=== PATIENT | female | born 1940 | race Caucasian/White ===

== ENCOUNTER → 2016-06-16 | Outpatient (CLI) | payer OTHER ==
[~2016-06-16] MED LIST: CHOL400T; PANT40TA PO
--- NOTE | 2016-06-16 09:46 | DIAGNOSTIC IMAGING REPORT ---
CHEST 2 VIEWS ROUTINE CLINICAL HISTORY: R04.2 [id number] hemoptysis. Dyspnea. COMPARISON STUDY: No previous studies for comparison. FINDINGS: The bones soft tissues and hemidiaphragms are normal. The cardiomediastinal silhouette is normal. The lungs are clear. The pulmonary vasculature is normal. IMPRESSION: Negative chest. Electronically signed by: Neptali Serrato M.D. 06/16/2016 9:45 AM Dictated Date/Time: 06/16/2016 9:44 AM
[2016-06-16 10:56] LABS: BASO % 0.6 %; BASO ABS # 0.03 K/uL (0-0.2); COMPLETE YES; EOS % 2.5 %; HEMATOCRIT 39.9 % (37-47); LYMPH % 28.7 %; LYMPH ABS # 1.49 K/uL (1.2-3.4); MEAN CELL VOLUME 89.7 fL (80-100); MEAN CORPUSCULAR HEMOGLOBIN 30.6 pg (25-34); MEAN CORPUSCULAR HGB CONC 34.1 g/dl (32-36); MEAN PLATELET VOLUME 10.7 fL (7.4-10.4); MONO % 10.8 %; NEUT % 57.4 %; PLATELET COUNT 196 K/uL (130-400); RED BLOOD COUNT 4.45 M/uL (4.2-5.4); WHITE BLOOD COUNT 5.19 K/uL (4.8-10.8)
[2016-06-16 14:34] LABS: BLOOD UREA NITROGEN 19 mg/dl (7-18); CALCIUM 9.3 mg/dl (8.5-10.1); CARBON DIOXIDE 26 mmol/L (21-32); CHLORIDE 103 mmol/L (98-107); GLUCOSE 92 mg/dl (70-99); POTASSIUM 3.8 mmol/L (3.5-5.1); SODIUM 139 mmol/L (136-145)
== END | disposition home or self-care (01) ==
LOC: C.RADBC 09:10
PROVIDERS: ATTEND Internal Medicine Geriatric Medicine
DX: R04.2 Hemoptysis (principal); M19.90 Unspecified osteoarthritis, unspecified site; E04.2 Nontoxic multinodular goiter; E55.9 Vitamin D deficiency, unspecified; D64.9 Anemia, unspecified

== ENCOUNTER → 2016-07-17 | Outpatient (CLI) | payer OTHER ==
--- NOTE | 2016-07-17 16:28 | MAMMOGRAPHY REPORT ---
BILATERAL DIGITAL SCREENING MAMMOGRAM TOMOSYNTHESIS WITH CAD: 07/17/2016 CLINICAL HISTORY: Routine screening. Patient has no complaints. TECHNIQUE: Breast tomosynthesis in addition to standard 2D mammography was performed. Current study was also evaluated with a Computer Aided Detection (CAD) system. COMPARISON: Comparison is made to exams dated: 11/27/2014 mammogram, 02/18/2012 mammogram, 1 mammogram, 11/15/2009 mammogram - [facility], 11/14/2008, and 08/23/2007. BREAST COMPOSITION: The tissue of both breasts is heterogeneously dense, which may obscure small ma sses. FINDINGS: No suspicious masses, calcifications, or areas of architectural distortion are noted in e ither breast. There has been no significant interval change compared to prior exams. There are stab le post surgical changes in the left breast. Bilateral benign-appearing calcifications are not sign ificantly changed. IMPRESSION: ACR BI-RADS CATEGORY 2: BENIGN There is no mammographic evidence of malignancy. A 1 year screening mammogram is recommended. The p atient will receive written notification of the results. Approximately 10% of breast cancers are not detected with mammography. A negative mammographic repor t should not delay biopsy if a clinically suggestive mass is present. Muna Frazier M.D. /:07/17/2016 16:23:11 Bicycle Ii Assembler: Peri Christian RT(R)(M), [facility] letter sent: Normal 1/2 BI-RADS Code: ACR BI-RADS Category 2: Benign
== END ==
LOC: C.MAMM 14:48
PROVIDERS: ATTEND Internal Medicine Geriatric Medicine
DX: Z12.31 Encounter for screening mammogram for malignant neoplasm of breast (principal); M81.0 Age-related osteoporosis without current pathological fracture

== ENCOUNTER → 2016-12-29 | Outpatient (CLI) | payer OTHER | END | disposition home or self-care (01) | LOC: C.PAPS 09:43 | PROVIDERS: ATTEND Obstetrics & Gynecology | DX: Z01.419 Encounter for gynecological examination (general) (routine) without abnormal findings (principal); N81.11 Cystocele, midline ==

== ENCOUNTER → 2017-08-27 | Outpatient (CLI) | payer OTHER ==
--- NOTE | 2017-08-27 14:15 | MAMMOGRAPHY REPORT ---
BILATERAL DIGITAL SCREENING MAMMOGRAM TOMOSYNTHESIS WITH CAD: 08/27/2017 CLINICAL HISTORY: Routine screening. Patient has no complaints. TECHNIQUE: Breast tomosynthesis in addition to standard 2D mammography was performed. Current study was also evaluated with a Computer Aided Detection (CAD) system. COMPARISON: Comparison is made to exams dated: 07/17/2016 mammogram, 11/27/2014 mammogram, 02/18/2012 mammogram, 01/30/2011 mammogram, 11/15/2009 mammogram - [facility], and 11/14/2008. BREAST COMPOSITION: The tissue of both breasts is heterogeneously dense, which may obscure small mas ses. FINDINGS: No suspicious masses, calcifications, or areas of architectural distortion are noted in ei ther breast. There has been no significant interval change compared to prior exams. There are stable postsurgical changes in the left breast. IMPRESSION: ACR BI-RADS CATEGORY 2: BENIGN There is no mammographic evidence of malignancy. A 1 year screening mammogram is recommended. The pa tient will receive written notification of the results. Approximately 10% of breast cancers are not detected with mammography. A negative mammographic report should not delay biopsy if a clinically suggestive mass is present. Muna Frazier M.D. /:08/27/2017 12:35:28 Sports Medicine Coordinator: Peri GARZON)(Mirna), [facility] letter sent: Normal 1/2 BI-RADS Code: ACR BI-RADS Category 2: Benign
== END | disposition home or self-care (01) ==
LOC: C.MAMM 11:30
PROVIDERS: ATTEND Internal Medicine Geriatric Medicine
DX: Z12.31 Encounter for screening mammogram for malignant neoplasm of breast (principal)

== ENCOUNTER 2023-11-23 11:36 | Inpatient (IN) ==
[2023-11-23 12:26] LABS: Basophils # (auto) 0.02 K/uL (0.00-0.20); Basophils % (auto) 0.2 %; Eosinophils % (auto) 1.2 %; Hematocrit (blood only) 43.3 % (37.0-47.0); Hemoglobin 14.5 g/dl (12.0-16.0); Immature Granulocytes # (auto) 0.01 K/uL (0.01-0.20); Immature Granulocytes % (auto) 0.1 %; Lymphocytes # (auto) 1.65 K/uL (1.20-3.40); Lymphocytes % (auto) 20.6 %; Mean Corpuscular Hgb Conc 33.5 g/dL (32.0-36.0); Mean Corpuscular Volume 92.7 fL (80.0-100.0); Mean Platelet Volume 10.6 fL (9.4-12.4); Monocytes # (auto) 0.79 K/uL (0.11-0.59); Monocytes % (auto) 9.9 %; Neutrophils # (auto) 5.45 K/uL (1.40-6.50); Platelet Count 173 K/uL (130-400); RDW Coefficient of Variation 13.2 % (11.5-14.5); RDW Standard Deviation 44.8 fL (36.4-46.3); Red Blood Count 4.67 M/uL (4.20-5.40); White Blood Count 8.02 K/ul (4.8-10.8)
[2023-11-23 12:42] LABS: Albumin Globulin Ratio 1.1 (0.9-2); Albumin Level 4.2 gm/dl (3.4-5.0); BUN Creatinine Ratio 17.7 (10-20); Bilirubin,Total 0.6 mg/dl (0.2-1.0); Calcium 9.3 mg/dl (8.6-10.3); Est GFR (Non-African American) 84.6 ml/min; Magnesium 1.9 mg/dl (1.7-2.4); Potassium 3.3 mmol/L (3.5-5.1); Total Protein 8.2 gm/dl (6.0-8.3)
--- NOTE | 2023-11-23 12:43 | XRay Report ---
XR chest 1V portable HISTORY: Chest pain, nonspecific COMPARISON: Chest 11/20/2023 FINDINGS: No pneumothorax. The cardiac silhouette remains mildly enlarged. Small bilateral pleural ef fusions are again noted. Mild interstitial thickening which is likely chronic. Left basilar linear de nsities favor subsegmental atelectasis. No new focal lung consolidations to suggest pneumonia. No castillo dence for pulmonary edema. Calcifications within the aortic knob. No acute fractures. IMPRESSION: Stable mild cardiomegaly and small bilateral pleural effusions. ACT 112: Negative or not required by law. Electronically signed by: Jay Valderrama M.D. 11/23/2023 12:41 PM
--- NOTE | 2023-11-23 12:45 | Emergency Department Note ---
Impression & Plan Narrow complex tachycardia, Hypokalemia, Atrial flutter with rapid ventricular response, Low magnesium level, SOB (shortness of breath) ED Provider Note NAME: ARNEL BASS AGE: 83 SEX: F : 1940 ARRIVES VIA: Ambulance INFORMANT: Patient ED PROVIDER(S): Marlon Moffett MD CHIEF COMPLAINT: Tachycardia, referred. Mother. PLAN: Disposition: Admit MEDICAL DECISION MAKING: The patient is a pleasant 83-year-old woman with a past medical history of paroxysmal SVT on Lopressor, history of MGUS, osteoarthritis, Dyspnea on exertion, GERD who presents to the emergency department via EMS referred by her PCP office and accompanied by family for evaluation of tachycardia in the 140s in the setting of easiness for department several days ago for symptoms of shortness of breath earlier she was determined to be hypervolemic and was started on Lasix and potassium. CTA of the chest was negative for PE at that time. Patient reports that her swelling had improved significantly and that 10 pounds of weight she had gained with fluid retention has resolved. No she has however remained short of breath with exertion. She denies feeling any heart racing. She denies any chest pain. She has any nausea, vomiting, diarrhea or urinary symptoms. She does report that she forgot to take her metoprolol this morning due to leaving for her scheduled appointment. On evaluation the patient is no distress, afebrile with heart rate in the 140s and narrow complex tachycardia and vital signs otherwise stable. Patient appears euvolemic to slightly dry today. EKG SVT versus atrial flutter with RVR, 147 bpm, no ectopy, no overt ST elevation or depression, QTc 497, QRS 76. CXR negative for acute cardiopulmonary process per my personal preliminary review/interpretation. WBC, H/H and platelets within normal limits. Chemistry without metabolic acidosis. Magnesium 1.9, low normal and potassium 3.3 with IV repletion initiated. PET study troponin is 9.1, within normal limits. BNP is marginally above upper limit of normal at 147, similar to prior nonspecific. Given the patient's improved fluid status appearance may be related to patient's tachycardia and associated stretch. Procalcitonin is undetectable. UA without evidence of infection. Respiratory BioFire was negative. Patient was treated with initial dose of 5 mg of IV Lopressor without improvement in heart rate. Second 5 mg dose of IV Lopressor was administered and tachycardia persisted. Given the patient appears euvolemic 500 cc normal saline was ordered and prior to initiation of these patient's heart rate did convert to the 90s/low 100s in sinus rhythm. Upon further monitoring the patient would have periods where she would have an increased heart rate to the 100s-110s and suspicion for possible underlying atrial flutter versus AT/atrial topic rhythm. She was given third dose of 5 mg of IV Lopressor. Given the persistence of her tachycardia in the setting of her symptoms, the patient and family agree with plan for admission for further evaluation and management. Case was discussed with JENNIFER Chow PAC and BRENDAN Emanuel hospitalist, who will evaluate the patient for admission. Further management per admitting team. Triage Nursing notes reviewed and agree them. Prior/external medical records reviewed Vital Signs: reviewed Differential diagnosis: Premature contractions, electrolyte abnormality, cardiac dysrhythmia, thyroid dysfunction, pulmonary embolism, infection, gastrointestinal, as well as other pathologies. ER treatment provided: See below. Diagnostics interpreted by me: ECG: SVT versus atrial flutter with RVR, 147 bpm, no ectopy, no overt ST elevation or depression, QTc 497, QRS 76 Cardiac Monitoring: An order for continuous cardiac monitoring was placed and demonstrated SVT versus atrial flutter with RVR, 147 bpm, no ectopy Laboratory studies: See below Imaging studies: See below Consultation(s): JENNIFER Chow and Dr. Lang [facility] hospitalist HPI: The patient is a pleasant 83-year-old woman with a past medical history of paroxysmal SVT on Lopressor, history of MGUS, osteoarthritis, Dyspnea on exertion, GERD who presents to the emergency department via EMS referred by her PCP office and accompanied by family for evaluation of tachycardia in the 140s in the setting of easiness for department several days ago for symptoms of shortness of breath earlier she was determined to be hypervolemic and was started on Lasix and potassium. CTA of the chest was negative for PE at that time. Patient reports that her swelling had improved significantly and that 10 pounds of weight she had gained with fluid retention has resolved. No she has however remained short of breath with exertion. She denies feeling any heart racing. She denies any chest pain. She has any nausea, vomiting, diarrhea or urinary symptoms. She does report that she forgot to take her metoprolol this morning due to leaving for her scheduled appointment. ROS: See above HPI for pertinent positives & negatives. A total of 10 systems reviewed and were otherwise negative. VITALS:See Below PHYSICAL EXAMINATION: GENERAL: Awake, alert, in no distress HENT: Normocephalic, atraumatic. Oropharynx with dry mucous membranes and otherwise unremarkable. EYES: Normal conjunctiva. Sclera non-icteric. NECK: Supple. No nuchal rigidity. FROM. No JVD. RESPIRATORY: Clear to auscultation. CARDIAC: Tachycardic rate, normal rhythm. Extremities warm and well perfused. Pulses equal. ABDOMEN: Soft, non-distended. No tenderness to palpation. No rebound or guarding. No masses. MUSCULOSKELETAL: Chest examination reveals no tenderness. The back is symmetrical on inspection without obvious abnormality. There is no CVA tenderness to palpation. No joint edema. LOWER EXTREMITIES: Calves are equal size bilaterally and non-tender. No edema. No discoloration. NEURO: Normal sensorium. No sensory or motor deficits noted. SKIN: No rash or jaundice noted. ED COURSE: Critical Care: I have personally spent greater than 45 minutes of critical care time in the direct management of this patient. This includes bedside care, interpretation of diagnostic studies, and testing, discussion with consultants, patient, and family members, and other required patient management activities. This 45 minutes is in excess of all separately billable procedures. Marlon Moffett MD Past Med/Surg History Problem List (Updated 11/23/23 @ 19:57 by Marlon Moffett MD) Low magnesium level (Acute) Atrial flutter with rapid ventricular response (Acute) Narrow complex tachycardia (Acute) Hypokalemia (Acute) Atrial fibrillation with RVR Elevated brain natriuretic peptide (BNP) level (Acute) Pedal edema (Acute) ZAPATA (dyspnea on exertion) (Acute) SOB (shortness of breath) (Acute) Polymyalgia rheumatica Long-term current use of steroids Osteoporosis (Acute) Vitamin D deficiency (Chronic) Leg edema Insufficiency fracture of tibia (~12/18/22) Acute appearing insufficiency fractures of the medial and lateral femoral condyles and medial tibial plateau-right knee Subchondral insufficiency fracture of femoral condyle (~12/18/22) Acute appearing insufficiency fractures of the medial and lateral femoral condyles and medial tibial plateau-right knee Internal derangement of knee Lumbar spinal stenosis (Acute) Monoclonal gammopathy of undetermined significance (Acute) Dyspnea on exertion Chronic osteoarthritis (Acute) Supraventricular tachycardia, paroxysmal (Acute) no cards Medical History Hard of hearing PMR (polymyalgia rheumatica) History of COVID-2020>resolved Mitral regurgitation Tremor, essential head Diverticulosis of colon Cystocele, midline Surgical History History of cataract surgery History of colonoscopy History of tooth extraction H/O breast biopsy open/benign Family History Father Prostate cancer Mother Breast cancer Denies family history of Ovarian cancer Myocardial infarction Lung cancer Colorectal cancer Uterine cancer Social History Smoking Status: Never smoker Second Hand Exposure: No; Do You Dip or Chew Tobacco: No; Hx Alcohol Use: No Hx Substance Use: No Preferred Language: Chilean Communication Ability: Effective Visual Impairment: Limited Hearing Ability: Hard of Hearing Woods Laborer Required: No Beliefs That Will Affect Care: None marital status: / Current Living Situation: Family Current Living Situation Comment: with son current occupational status: retired How many Children do You have: 4 Feels Safe at Home: Yes Childhood Exposure to Second-Hand Smoke: Yes (father smoked in home ) Diet: regular caffeine: Yes (iced tea ) during the past year weight has: remained stable Dental Care, Regularly: Yes Physical Activity Frequency: 5-6 Times per Week Physical Activity Frequency Comment: walks - limited due to right knee Seatbelt Use: always Sunscreen Use: Yes Do you think of yourself as: straight/heterosexual Assistive Devices: Glasses Allergies Allergies Allergy/AdvReac Type Severity Reaction Status Date / Time doxycycline AdvReac Intermediate Muscle Pain Verified 11/23/23 10:36 Home Meds Home Medications Medication Instructions Recorded Confirmed cholecalciferol (vitamin D3) 25 1,000 units PO QAM 12/21/18 11/23/23 mcg (1,000 unit) tablet triamcinolone acetonide 0.1 % 1 applic topical BID PRN . 12/17/21 11/23/23 topical cream Previous Rx's Medication Instructions Recorded Wheelchair (Manual) #1 ea 01/30/23 esomeprazole magnesium 40 mg 40 mg PO QAM #90 caps 02/18/23 capsule,delayed release (Nexium) metoprolol succinate 25 mg 37.5 mg (1.5 x 25 mg) PO QAM #135 09/09/23 tablet,extended release 24 hr tabs furosemide 40 mg tablet (Lasix) 40 mg PO DAILY #4 tabs 11/20/23 potassium chloride 20 mEq 20 meq PO DAILY #4 tabs 11/20/23 tablet,extended release Results & Data (ED) Vital Signs Vital Signs - 24 hr 11/23/23 11:52 11/23/23 11:52 11/23/23 11:52 Temperature 36.7 C Temperature Source Oral Pulse Rate 145 H Pulse Rate [Finger] 145 H Pulse Rate from SpO2 Sensor Respiratory Rate 20 18 Respiratory Effort / Characteristics Non-Labored Spontaneous Non-Labored Spontaneous Respiratory Depth Normal Normal Respiratory Pattern Regular Regular Blood Pressure 143/108 H Blood Pressure [Right Arm] 128/89 Blood Pressure Mean 119 Blood Pressure Mean [Right Arm] 102 Blood Pressure Position Semi-fowlers Blood Pressure Position [Right Arm] Semi-fowlers Pulse Oximetry 94 95 94 Oxygen Delivery Method Room Air Room Air Room Air Sepsis Recent Fever Within 48 Hours No Sepsis New/Unexplained Change in Mental Status No Sepsis Action Taken by Nursing No Action Required 11/23/23 12:09 11/23/23 12:48 11/23/23 13:11 Temperature Temperature Source Pulse Rate 143 H 144 H Pulse Rate [Finger] 145 H Pulse Rate from SpO2 Sensor Respiratory Rate 24 20 Respiratory Effort / Characteristics Non-Labored Spontaneous Respiratory Depth Normal Respiratory Pattern Regular Blood Pressure Blood Pressure [Right Arm] 122/90 Blood Pressure Mean Blood Pressure Mean [Right Arm] 100 Blood Pressure Position Blood Pressure Position [Right Arm] Semi-fowlers Pulse Oximetry 95 96 Oxygen Delivery Method Room Air Room Air Sepsis Recent Fever Within 48 Hours Sepsis New/Unexplained Change in Mental Status Sepsis Action Taken by Nursing 11/23/23 13:12 11/23/23 13:22 11/23/23 13:30 Temperature Temperature Source Pulse Rate 146 H Pulse Rate [Finger] 137 H Pulse Rate from SpO2 Sensor Respiratory Rate 19 17 Respiratory Effort / Characteristics Respiratory Depth Respiratory Pattern Blood Pressure 122/90 108/86 Blood Pressure [Right Arm] 119/94 Blood Pressure Mean 97 Blood Pressure Mean [Right Arm] 102 Blood Pressure Position Blood Pressure Position [Right Arm] Pulse Oximetry 96 95 Oxygen Delivery Method Room Air Room Air Sepsis Recent Fever Within 48 Hours Sepsis New/Unexplained Change in Mental Status Sepsis Action Taken by Nursing 11/23/23 13:45 11/23/23 13:45 11/23/23 13:50 Temperature Temperature Source Pulse Rate Pulse Rate [Finger] Pulse Rate from SpO2 Sensor Respiratory Rate Respiratory Effort / Characteristics Respiratory Depth Respiratory Pattern Blood Pressure 100/81 100/81 104/86 Blood Pressure [Right Arm] Blood Pressure Mean 85 85 91 Blood Pressure Mean [Right Arm] Blood Pressure Position Blood Pressure Position [Right Arm] Pulse Oximetry Oxygen Delivery Method Sepsis Recent Fever Within 48 Hours Sepsis New/Unexplained Change in Mental Status Sepsis Action Taken by Nursing 11/23/23 13:55 11/23/23 14:00 11/23/23 14:15 Temperature Temperature Source Pulse Rate 136 H Pulse Rate [Finger] Pulse Rate from SpO2 Sensor Respiratory Rate 25 H Respiratory Effort / Characteristics Respiratory Depth Respiratory Pattern Blood Pressure 107/84 104/79 109/87 Blood Pressure [Right Arm] Blood Pressure Mean 89 83 94 Blood Pressure Mean [Right Arm] Blood Pressure Position Blood Pressure Position [Right Arm] Pulse Oximetry 95 Oxygen Delivery Method Sepsis Recent Fever Within 48 Hours Sepsis New/Unexplained Change in Mental Status Sepsis Action Taken by Nursing 11/23/23 14:25 11/23/23 14:25 11/23/23 14:30 Temperature Temperature Source Pulse Rate 137 H 117 H Pulse Rate [Finger] Pulse Rate from SpO2 Sensor 103 H Respiratory Rate Respiratory Effort / Characteristics Respiratory Depth Respiratory Pattern Blood Pressure 113/86 113/86 106/83 Blood Pressure [Right Arm] Blood Pressure Mean 90 92 Blood Pressure Mean [Right Arm] Blood Pressure Position Blood Pressure Position [Right Arm] Pulse Oximetry 94 Oxygen Delivery Method Sepsis Recent Fever Within 48 Hours Sepsis New/Unexplained Change in Mental Status Sepsis Action Taken by Nursing 11/23/23 14:40 11/23/23 14:44 11/23/23 14:44 Temperature Temperature Source Pulse Rate 102 H Pulse Rate [Finger] 110 H Pulse Rate from SpO2 Sensor Respiratory Rate 19 Respiratory Effort / Characteristics Non-Labored Spontaneous Respiratory Depth Normal Respiratory Pattern Regular Blood Pressure 113/79 113/79 Blood Pressure [Right Arm] 100/82 Blood Pressure Mean 82 Blood Pressure Mean [Right Arm] 88 Blood Pressure Position Blood Pressure Position [Right Arm] Semi-fowlers Pulse Oximetry 95 Oxygen Delivery Method Room Air Sepsis Recent Fever Within 48 Hours Sepsis New/Unexplained Change in Mental Status Sepsis Action Taken by Nursing 11/23/23 14:45 11/23/23 15:00 11/23/23 15:05 Temperature Temperature Source Pulse Rate Pulse Rate [Finger] Pulse Rate from SpO2 Sensor Respiratory Rate Respiratory Effort / Characteristics Respiratory Depth Respiratory Pattern Blood Pressure 100/82 115/88 114/82 Blood Pressure [Right Arm] Blood Pressure Mean 84 93 93 Blood Pressure Mean [Right Arm] Blood Pressure Position Blood Pressure Position [Right Arm] Pulse Oximetry Oxygen Delivery Method Sepsis Recent Fever Within 48 Hours Sepsis New/Unexplained Change in Mental Status Sepsis Action Taken by Nursing 11/23/23 15:05 11/23/23 15:05 11/23/23 15:10 Temperature Temperature Source Pulse Rate Pulse Rate [Finger] Pulse Rate from SpO2 Sensor Respiratory Rate Respiratory Effort / Characteristics Respiratory Depth Respiratory Pattern Blood Pressure 114/82 114/82 117/88 Blood Pressure [Right Arm] Blood Pressure Mean 93 93 100 Blood Pressure Mean [Right Arm] Blood Pressure Position Blood Pressure Position [Right Arm] Pulse Oximetry Oxygen Delivery Method Sepsis Recent Fever Within 48 Hours Sepsis New/Unexplained Change in Mental Status Sepsis Action Taken by Nursing 11/23/23 15:10 11/23/23 15:10 11/23/23 15:11 Temperature Temperature Source Pulse Rate 108 H Pulse Rate [Finger] Pulse Rate from SpO2 Sensor 111 H Respiratory Rate 19 Respiratory Effort / Characteristics Respiratory Depth Respiratory Pattern Blood Pressure 117/88 117/88 Blood Pressure [Right Arm] Blood Pressure Mean 100 100 Blood Pressure Mean [Right Arm] Blood Pressure Position Blood Pressure Position [Right Arm] Pulse Oximetry 94 Oxygen Delivery Method Sepsis Recent Fever Within 48 Hours Sepsis New/Unexplained Change in Mental Status Sepsis Action Taken by Nursing 11/23/23 15:15 11/23/23 15:25 11/23/23 15:29 Temperature Temperature Source Pulse Rate 108 H Pulse Rate [Finger] Pulse Rate from SpO2 Sensor 99 H Respiratory Rate 20 Respiratory Effort / Characteristics Respiratory Depth Respiratory Pattern Blood Pressure 100/68 122/88 Blood Pressure [Right Arm] Blood Pressure Mean 75 90 Blood Pressure Mean [Right Arm] Blood Pressure Position Blood Pressure Position [Right Arm] Pulse Oximetry 96 Oxygen Delivery Method Sepsis Recent Fever Within 48 Hours Sepsis New/Unexplained Change in Mental Status Sepsis Action Taken by Nursing 11/23/23 15:30 11/23/23 15:30 11/23/23 15:35 Temperature Temperature Source Pulse Rate 108 H Pulse Rate [Finger] Pulse Rate from SpO2 Sensor 99 H Respiratory Rate 20 Respiratory Effort / Characteristics Respiratory Depth Respiratory Pattern Blood Pressure 120/91 120/91 112/90 Blood Pressure [Right Arm] Blood Pressure Mean 98 98 104 Blood Pressure Mean [Right Arm] Blood Pressure Position Blood Pressure Position [Right Arm] Pulse Oximetry 96 Oxygen Delivery Method Sepsis Recent Fever Within 48 Hours Sepsis New/Unexplained Change in Mental Status Sepsis Action Taken by Nursing 11/23/23 15:35 11/23/23 15:42 11/23/23 15:55 Temperature Temperature Source Pulse Rate 102 H 111 H 106 H Pulse Rate [Finger] Pulse Rate from SpO2 Sensor 109 H 99 H Respiratory Rate 20 Respiratory Effort / Characteristics Respiratory Depth Respiratory Pattern Blood Pressure 142/103 H 121/100 Blood Pressure [Right Arm] Blood Pressure Mean 113 Blood Pressure Mean [Right Arm] Blood Pressure Position Blood Pressure Position [Right Arm] Pulse Oximetry 95 Oxygen Delivery Method Sepsis Recent Fever Within 48 Hours Sepsis New/Unexplained Change in Mental Status Sepsis Action Taken by Nursing Laboratory Data Attestation: I reviewed the patient's lab results. 11/23/23 12:03 11/23/23 17:40 Lab Results 11/23/23 11/23/23 11/23/23 Range/Units 12:03 12:42 13:19 WBC 8.02 (4.8-10.8) K/ul RBC 4.67 (4.20-5.40) M/uL Hgb 14.5 (12.0-16.0) g/dl Hct 43.3 (37.0-47.0) % MCV 92.7 (80.0-100.0) fL MCH 31.0 (25.0-34.0) pg MCHC 33.5 (32.0-36.0) g/dL RDW Std Deviation 44.8 (36.4-46.3) fL RDW Coeff of Joe 13.2 (11.5-14.5) % Plt Count 173 (130-400) K/uL MPV 10.6 (9.4-12.4) fL Immature Gran % (Auto) 0.1 % Neut % (Auto) 68.0 % Lymph % (Auto) 20.6 % [place] % (Auto) 9.9 % Eos % (Auto) 1.2 % Baso % (Auto) 0.2 % Neut # (Auto) 5.45 (1.40-6.50) K/uL Lymph # (Auto) 1.65 (1.20-3.40) K/uL [place] # (Auto) 0.79 H (0.11-0.59) K/uL Eos # (Auto) 0.10 (0.00-0.50) K/uL Baso # (Auto) 0.02 (0.00-0.20) K/uL Immature Gran # (Auto) 0.01 (0.01-0.20) K/uL PT 11.5 (9.0-12.0) Seconds INR 1.1 (0.9-1.1) Sodium 137 (136-145) mmol/L Potassium 3.3 L (3.5-5.1) mmol/L Chloride 97 L (98-107) mmol/L Carbon Dioxide 31 (21-32) mmol/L Anion Gap 9 (3-11) BUN 11 (6-23) mg/dl Creatinine 0.62 (0.6-1.2) mg/dl Est Cr Clr Drug Dosing 61.0 ml/min Est GFR ( Amer) 98.0 ml/min Est GFR (Non-Af Amer) 84.6 ml/min BUN/Creatinine Ratio 17.7 (10-20) Glucose 102 H (70-99(Fasting)) mg/dl Calcium 9.3 (8.6-10.3) mg/dl Phosphorus 3.9 (2.5-4.9) mg/dl Magnesium 1.9 (1.7-2.4) mg/dl Total Bilirubin 0.6 (0.2-1.0) mg/dl AST 26 (13-39) U/L ALT 20 (7-52) U/L Alkaline Phosphatase 75 (34-104) U/L Troponin I High Sens 9.1 (0-14) pg/ml B-Natriuretic Peptide 147 H (0-100) pg/ml Total Protein 8.2 (6.0-8.3) gm/dl Albumin 4.2 (3.4-5.0) gm/dl Globulin 4.0 (2.5-4.0) gm/dl Albumin/Globulin Ratio 1.1 (0.9-2) Lipase 20 (11-82) U/L Procalcitonin < 0.02 (0-0.5) ng/ml TSH 1.962 (0.300-4.500) uIu/ml Random Cortisol 8.07 mcg/dl Urine Color Urine Appearance (Clear) Urine pH (4.5-7.5) Ur Specific [place] (1.000-1.030) Urine Protein (Negative) Urine Glucose (UA) (Negative) Urine Ketones (Negative) Urine Blood (Negative) Urine Nitrite (Negative) Urine Bilirubin (Negative) Urine Urobilinogen (Negative) Ur Leukocyte Esterase (Negative) Urine WBC (Auto) (0-5) /hpf Urine RBC (Auto) (0-2) /hpf U Hyaline Cast (Auto) (0-2) /lpf U Epithel Cells (Auto) (0-2) /hpf Urine Bacteria (Auto) (None Seen) Adenovirus (PCR) Not Detected (NotDetected) B. pertussis DNA (PCR) Not Detected (NotDetected) B.parapertussis DNA PCR Not Detected (NotDetected) C. pneumoniae DNA (PCR) Not Detected (NotDetected) Coronavirus OC43 (PCR) Not Detected (NotDetected) Coronavirus HKU1 (PCR) Not Detected (NotDetected) Coronavirus 229E (PCR) Not Detected (NotDetected) SARS-CoV-2 (PCR) Not Detected (NotDetected) Coronavirus NL63 (PCR) Not Detected (NotDetected) Human Metapneumovir PCR Not Detected (NotDetected) Influenza Type A (PCR) Not Detected (NotDetected) Influenza Type B (PCR) Not Detected (NotDetected) M. pneumoniae (PCR) Not Detected (NotDetected) Parainfluenza 1 (PCR) Not Detected (NotDetected) Parainfluenza 2 (PCR) Not Detected (NotDetected) Parainfluenza 3 (PCR) Not Detected (NotDetected) Parainfluenza 4 (PCR) Not Detected (NotDetected) RSV (PCR) Not Detected (NotDetected) Entero/Rhino (PCR) Not Detected (NotDetected) 11/23/23 Range/Units 14:40 WBC (4.8-10.8) K/ul RBC (4.20-5.40) M/uL Hgb (12.0-16.0) g/dl Hct (37.0-47.0) % MCV (80.0-100.0) fL MCH (25.0-34.0) pg MCHC (32.0-36.0) g/dL RDW Std Deviation (36.4-46.3) fL RDW Coeff of Joe (11.5-14.5) % Plt Count (130-400) K/uL MPV (9.4-12.4) fL Immature Gran % (Auto) % Neut % (Auto) % Lymph % (Auto) % [place] % (Auto) % Eos % (Auto) % Baso % (Auto) % Neut # (Auto) (1.40-6.50) K/uL Lymph # (Auto) (1.20-3.40) K/uL [place] # (Auto) (0.11-0.59) K/uL Eos # (Auto) (0.00-0.50) K/uL Baso # (Auto) (0.00-0.20) K/uL Immature Gran # (Auto) (0.01-0.20) K/uL PT (9.0-12.0) Seconds INR (0.9-1.1) Sodium (136-145) mmol/L Potassium (3.5-5.1) mmol/L Chloride (98-107) mmol/L Carbon Dioxide (21-32) mmol/L Anion Gap (3-11) BUN (6-23) mg/dl Creatinine (0.6-1.2) mg/dl Est Cr Clr Drug Dosing ml/min Est GFR ( Amer) ml/min Est GFR (Non-Af Amer) ml/min BUN/Creatinine Ratio (10-20) Glucose (70-99(Fasting)) mg/dl Calcium (8.6-10.3) mg/dl Phosphorus (2.5-4.9) mg/dl Magnesium (1.7-2.4) mg/dl Total Bilirubin (0.2-1.0) mg/dl AST (13-39) U/L ALT (7-52) U/L Alkaline Phosphatase (34-104) U/L Troponin I High Sens (0-14) pg/ml B-Natriuretic Peptide (0-100) pg/ml Total Protein (6.0-8.3) gm/dl Albumin (3.4-5.0) gm/dl Globulin (2.5-4.0) gm/dl Albumin/Globulin Ratio (0.9-2) Lipase (11-82) U/L Procalcitonin (0-0.5) ng/ml TSH (0.300-4.500) uIu/ml Random Cortisol mcg/dl Urine Color Yellow Urine Appearance Clear (Clear) Urine pH 7.0 (4.5-7.5) Ur Specific [place] 1.009 (1.000-1.030) Urine Protein Negative (Negative) Urine Glucose (UA) Negative (Negative) Urine Ketones Negative (Negative) Urine Blood Negative (Negative) Urine Nitrite Negative (Negative) Urine Bilirubin Negative (Negative) Urine Urobilinogen Negative (Negative) Ur Leukocyte Esterase Trace H (Negative) Urine WBC (Auto) 0-5 (0-5) /hpf Urine RBC (Auto) 0-2 (0-2) /hpf U Hyaline Cast (Auto) 0-2 (0-2) /lpf U Epithel Cells (Auto) 0-2 (0-2) /hpf Urine Bacteria (Auto) None Seen (None Seen) Adenovirus (PCR) (NotDetected) B. pertussis DNA (PCR) (NotDetected) B.parapertussis DNA PCR (NotDetected) C. pneumoniae DNA (PCR) (NotDetected) Coronavirus OC43 (PCR) (NotDetected) Coronavirus HKU1 (PCR) (NotDetected) Coronavirus 229E (PCR) (NotDetected) SARS-CoV-2 (PCR) (NotDetected) Coronavirus NL63 (PCR) (NotDetected) Human Metapneumovir PCR (NotDetected) Influenza Type A (PCR) (NotDetected) Influenza Type B (PCR) (NotDetected) M. pneumoniae (PCR) (NotDetected) Parainfluenza 1 (PCR) (NotDetected) Parainfluenza 2 (PCR) (NotDetected) Parainfluenza 3 (PCR) (NotDetected) Parainfluenza 4 (PCR) (NotDetected) RSV (PCR) (NotDetected) Entero/Rhino (PCR) (NotDetected) Administered Medications Heparin Sodium/Dextrose (Heparin Sodium/Dextrose) 25,000 units in 500 mls @ 13 mls/hr IV .Q24H HARIKA; Protocol Stop: 12/23/23 17:14 Last Admin: 11/23/23 17:31 Dose: 650 units/hr, 13 mls/hr Documented By: BRAYDEN Co-signed By: MERRITT Discontinued Medications Heparin Sodium (Porcine) (Heparin Sod (Porcine) 1000 Unit/Ml) 3,000 units IV NOW ONE Stop: 11/23/23 17:14 Last Admin: 11/23/23 17:33 Dose: 3,000 units Documented By: BRAYDEN Co-signed By: MERRITT Magnesium Sulfate/Dextrose (Magnesium Sulfate / D5w) 1 gm in 100 mls @ 100 mls/hr IV NOW STA Stop: 11/23/23 14:18 Last Infusion: 11/23/23 18:24 Dose: Infused Documented By: Admin: 11/23/23 14:39 Dose: 100 mls/hr Documented By: CARLOS Sodium Chloride (Nss) 500 mls @ 999 mls/hr IV .Q31M ONE Stop: 11/23/23 13:48 Last Infusion: 11/23/23 18:25 Dose: Infused Documented By: Admin: 11/23/23 14:39 Dose: 999 mls/hr Documented By: CARLOS Potassium Chloride (K Tahir / Wtr) 10 meq in 100 mls @ 100 mls/hr IV Q1H HARIKA Stop: 11/23/23 15:29 Last Admin: 11/23/23 15:38 Dose: Not Given Documented By: Infusion: 11/23/23 15:38 Dose: Infused Documented By: Admin: 11/23/23 14:39 Dose: 100 mls/hr Documented By: CARLOS Metoprolol Succinate (Metoprolol Succ 50mg Ext Rel Tab) 37.5 mg PO NOW STA Stop: 11/23/23 16:24 Last Admin: 11/23/23 17:13 Dose: 37.5 mg Documented By: BRAYDEN Metoprolol Tartrate (Metoprolol Tartrate 1 Mg/Ml Vial) 5 mg IV NOW STA Stop: 11/23/23 12:38 Last Admin: 11/23/23 13:12 Dose: 5 mg Documented By: CARLOS Metoprolol Tartrate (Metoprolol Tartrate 1 Mg/Ml Vial) 5 mg IV NOW STA Stop: 11/23/23 13:19 Last Admin: 11/23/23 14:25 Dose: 5 mg Documented By: CARLOS Metoprolol Tartrate (Metoprolol Tartrate 1 Mg/Ml Vial) 5 mg IV NOW STA Stop: 11/23/23 14:14 Last Admin: 11/23/23 15:42 Dose: 5 mg Documented By: CARLOS Metoprolol Tartrate (Metoprolol Tartrate 1 Mg/Ml Vial) 5 mg IV NOW STA Stop: 11/23/23 19:10 Last Admin: 11/23/23 19:18 Dose: 5 mg Documented By: RAF Potassium Chloride (Potassium Chloride Crtab 20 Meq Tabcr) 40 meq PO NOW STA Stop: 11/23/23 15:22 Last Admin: 11/23/23 15:39 Dose: 20 meq Documented By: CARLOS Imaging Data Radiologist's Impression: Chest X-Ray 11/23/23 12:05 XR chest 1V portable HISTORY: Chest pain, nonspecific COMPARISON: Chest 11/20/2023 FINDINGS: No pneumothorax. The cardiac silhouette remains mildly enlarged. Small bilateral pleural effusions are again noted. Mild interstitial thickening which is likely chronic. Left basilar linear densities favor subsegmental atelectasis. No new focal lung consolidations to suggest pneumonia. No evidence for pulmonary edema. Calcifications within the aortic knob. No acute fractures. IMPRESSION: Stable mild cardiomegaly and small bilateral pleural effusions. ACT 112: Negative or not required by law. Electronically signed by: Jay Valderrama M.D. 11/23/2023 12:41 PM Discharge Plan Visit Data Chief Complaint: Cardiac Assessment Stated Complaint: CARDIAC ASSESSMENT ED Provider: Marlon Moffett Discharge Problem: Narrow complex tachycardia, Hypokalemia, Atrial flutter with rapid ventricular response, Low magnesium level, SOB (shortness of breath) Patient Disposition: Admitted As Inpatient Discharge Instructions Interventions: ED Discharge Assessment Last Done: 11/23/23 18:17
[2023-11-23 12:47] LABS: Troponin I High Sensitivity 9.1 pg/ml (0-14)
[2023-11-23 12:49] LABS: INR 1.1 (0.9-1.1); Prothrombin Time 11.5 Seconds (9.0-12.0)
[2023-11-23] MEDS: METOPROLOL TARTRATE 1 MG/ML VIAL IV STA ×4 (13:12→19:18)
[2023-11-23 13:52] LABS: Phosphorus 3.9 mg/dl (2.5-4.9)
[2023-11-23] MEDS: SODIUM CHLORIDE 0.9% 500 ML IV ONE (14:39)
[2023-11-23] MEDS: MAGNESIUM SULFATE / D5W 1 GM/100 ML BAG IV STA (14:39)
[2023-11-23] MEDS: POTASSIUM CHLORIDE / WTR 10 MEQ/100 ML PLCT IV SCH ×2 (14:39→20:19)
[2023-11-23 14:52] LABS: Adenovirus PCR Not Detected (NotDetected); Bordetella parapertussis PCR Not Detected (NotDetected); Bordetella pertussis PCR Not Detected (NotDetected); Chlamydia pneumoniae PCR Not Detected (NotDetected); Coronavirus 229E PCR Not Detected (NotDetected); Coronavirus CoV-2 (COVID19)PCR Not Detected (NotDetected); Coronavirus HKU1 PCR Not Detected (NotDetected); Coronavirus NL63 PCR Not Detected (NotDetected); Coronavirus OC43PCR Not Detected (NotDetected); Human Metapneumovirus PCR Not Detected (NotDetected); Influenza A PCR Not Detected (NotDetected); Influenza B PCR Not Detected (NotDetected); Mycoplasma pneumoniae PCR Not Detected (NotDetected); Parainfluenza Virus 1 PCR Not Detected (NotDetected); Parainfluenza Virus 2 PCR Not Detected (NotDetected); Parainfluenza Virus 3 PCR Not Detected (NotDetected); Parainfluenza Virus 4 PCR Not Detected (NotDetected); Respiratory Syncytial VirusPCR Not Detected (NotDetected); Rhinovirus/Enterovirus PCR Not Detected (NotDetected)
[2023-11-23 14:57] LABS: Appearance Urine Clear (Clear); Bacteria Urine Automated None Seen (None Seen); Bilirubin Urine Negative (Negative); Blood Urine Negative (Negative); Cast Urine Automated 0-2 /lpf (0-2); Color Urine Yellow; Epithelial Cell Urine Auto 0-2 /hpf (0-2); Glucose Urine UA Negative (Negative); Ketones Urine Negative (Negative); Leukocyte Esterase Urine Trace (Negative); Nitrite Urine Negative (Negative); Protein Urine Negative (Negative); RBC Urine Automated 0-2 /hpf (0-2); Specific Gravity Urine 1.009 (1.000-1.030); Urobilinogen Urine Negative (Negative); WBC Urine Automated 0-5 /hpf (0-5)
--- NOTE | 2023-11-23 15:35 | Electrocardiogram Report ---
Test Reason : Blood Pressure : */* mmHG Vent. Rate : 147 BPM Atrial Rate : * BPM P-R Int : * ms QRS Dur : 76 ms QT Int : 318 ms P-R-T Axes : * 44 48 degrees QTcB Int : 497 ms Supraventricular tachycardia Possible Old Anteroseptal infarct (cited on or before 30-Jan-2016) Abnormal ECG When compared with ECG of 20-Nov-2023 12:33, Vent. rate has increased by 65 bpm Confirmed by Varun Garza ([id number]) on 11/23/2023 3:35:18 PM Referred By: REFERRED SELF Confirmed By: Varun Garza
[2023-11-23] MEDS: POTASSIUM CHLORIDE CRTAB 20 MEQ TABCR PO STA (15:39)
--- NOTE | 2023-11-23 15:52 | History & Physical Report ---
Date of Service November 23, 2023 Assessment & Plan (1) Narrow complex tachycardia: Plan: Admit to the PCU on telemetry and pulse oximetry Currently stable with heart rate in the 90s stable Present to the ED due to being significantly tachycardic with heart rate in the 140s at her PCP office earlier today ECG on arrival was consistent with SVT and patient was given 3 doses of 5 mg IV Lopressor, 500 mL NSS, 1 g elevated, 40M EQ p.o. KCl, and 10 mEq IV KCl Repeat EKG is equivocal at this time, spoke with Cardiology, appreciate their assistance, they believe the initial ECG shows a-flutter and repeat shows atrial fibrillation On auscultation heart rate is tachycardic with irregular rhythm After further discussions with the patient and family they are in agreement with starting low-dose, weight-based heparin drip with bolus tonight Arrhythmia could have been exacerbated with recent furosemide use causing hypokalemia with potassium of 3.3 and mag of 1.9 on arrival Patient also missed her a.m. dose of metoprolol succinate today Will give patient's home dose of metoprolol succinate now Will consult cardiology and obtain TTE tomorrow Will repeat potassium and magnesium levels this evening to ensure they are stable Will obtain TSH with reflex free T4 if needed and random cortisol level at the time of admission Heart healthy diet with 2 g sodium restriction Heparin drip for DVT PPX CBC, CMP, mag, PT/INR (2) Supraventricular tachycardia, paroxysmal: Plan: See narrow complex tachycardia (3) Hypokalemia: Plan: Initial potassium level of 3.3 on arrival with mag of 1.9 Likely due to p.o. Lasix use over the past 4 days status post 40 mEq p.o. KCl and 10 mEq IV KCl in the ED Monitor daily renal function electrolytes (4) Polymyalgia rheumatica: Plan: Recently completed a year-long prednisone taper last month Will obtain cortisol level to ensure weakness and electrolyte abnormalities are not due to adrenal insufficiency Follow-up TSH with reflex T4 if needed Plan The patient was discussed with Dr. Lang at the time of the admission History of Present Illness Chief Complaint: tachycardia Primary Care Provider: Eric Whiting DO Scarlett is an 83-year-old female with a past medical history significant for SVT, MGUS, PMR, and GERD who presented to the [facility] ED on 11/23/2023 at the recommendation of her PCP after she was noted to be tachycardic with heart rate in the 140s during her PCP appointment this morning. On arrival to the ED she was noted be tachycardic with heart rate in the 140s but was otherwise stable. Labs were significant for a potassium of 3.3, mag of 1.9, high-sensitivity troponin within normal limits, BNP of 147, full respiratory BioFire negative, and UA with trace leukocyte esterase. Chest x-ray was read as stable mild cardiomegaly and small bilateral pleural effusions. Initial ECG showed SVT with possible old anterior septal infarct. Patient was initially given 10 mEq IV KCl, 40M EQ p.o. KCl, 1 g IV mag sulfate, 500 mL NSS, and a total of 3 doses 5 mg IV metoprolol tartrate the 110's. However, Repeat ECG after initial resuscitation shows possible atrial flutter versus MAT. Per chart review, the patient was recently seen in the [facility] ED on 11/20/2023 with a chief complaint of shortness of breath. Workup at that time was significant for a BNP of 168, CTA of the chest negative for PE but showing bilateral pleural effusions, and negative bilateral venous Doppler scans. ECG during that visit showed sinus rhythm with first-degree AV block with old septal infarct. The patient was discharged with 40 mg p.o. Lasix daily x 4 days. Patient was sitting in bed in no acute distress at time of the exam with her family bedside which includes her son, [id number], and granddaughter. They confirm history above including ED visit on 11/20/2023 for shortness of breath and bilateral lower extremity swelling. She states that p.o. Lasix has significantly helped with her swelling and weight gain. States that she had been feeling well over the weekend, however, her [id number] states that the patient had significantly less energy than her baseline and definitely had episodes of tachycardia over the weekend. Patient denies recent fever, chills, chest pain, cough, abdominal pain, nausea/vomiting, dysuria, hematuria, melena, bloody bowel movements, recurrent lower extremity swelling, and recent trauma. When asked about previous bleeding they explained that the patient had a previous GI bleed in 2017 which required hospitalization. Denies other episodes of bleeding since 2017. She recently completed a long prednisone taper over the past year for PMR which was completed last month. We discussed CODE STATUS, they confirmed the patient is a full code and would want her son to make medical decisions for her if she cannot make them herself. Patient confirmed that she forgot to take her dose of a.m. metoprolol succinate prior to her PCP appointment. Please refer to Dr. Lang's attestation for any changes to the treatment plan Allergies Allergy/AdvReac Type Severity Reaction Status Date / Time doxycycline AdvReac Intermediate Muscle Pain Verified 11/23/23 10:36 Home Medications Medication Instructions Recorded Confirmed Type cholecalciferol (vitamin D3) 25 1,000 units PO QAM 12/21/18 11/23/23 History mcg (1,000 unit) tablet triamcinolone acetonide 0.1 % 1 applic topical BID PRN . 12/17/21 11/23/23 History topical cream Wheelchair (Manual) #1 ea 01/30/23 11/23/23 Rx esomeprazole magnesium 40 mg 40 mg PO QAM #90 caps 02/18/23 11/23/23 Rx capsule,delayed release (Nexium) metoprolol succinate 25 mg 37.5 mg (1.5 x 25 mg) PO QAM #135 09/09/23 11/23/23 Rx tablet,extended release 24 hr tabs furosemide 40 mg tablet (Lasix) 40 mg PO DAILY #4 tabs 11/20/23 11/23/23 Rx potassium chloride 20 mEq 20 meq PO DAILY #4 tabs 11/20/23 11/23/23 Rx tablet,extended release Past Med/Surg History Problem List (Updated 11/23/23 @ 19:57 by Marlon Moffett MD) Low magnesium level (Acute) Atrial flutter with rapid ventricular response (Acute) Narrow complex tachycardia (Acute) Hypokalemia (Acute) Atrial fibrillation with RVR Elevated brain natriuretic peptide (BNP) level (Acute) Pedal edema (Acute) ZAPATA (dyspnea on exertion) (Acute) SOB (shortness of breath) (Acute) Polymyalgia rheumatica Long-term current use of steroids Osteoporosis (Acute) Vitamin D deficiency (Chronic) Leg edema Insufficiency fracture of tibia (~12/18/22) Acute appearing insufficiency fractures of the medial and lateral femoral condyles and medial tibial plateau-right knee Subchondral insufficiency fracture of femoral condyle (~12/18/22) Acute appearing insufficiency fractures of the medial and lateral femoral condyles and medial tibial plateau-right knee Internal derangement of knee Lumbar spinal stenosis (Acute) Monoclonal gammopathy of undetermined significance (Acute) Dyspnea on exertion Chronic osteoarthritis (Acute) Supraventricular tachycardia, paroxysmal (Acute) no cards Medical History Hard of hearing PMR (polymyalgia rheumatica) History of COVID-2020>resolved Mitral regurgitation Tremor, essential head Diverticulosis of colon Cystocele, midline Surgical History History of cataract surgery History of colonoscopy History of tooth extraction H/O breast biopsy open/benign Family History Father Prostate cancer Mother Breast cancer Denies family history of Ovarian cancer Myocardial infarction Lung cancer Colorectal cancer Uterine cancer Social History Smoking Status: Never smoker Second Hand Exposure: No; Do You Dip or Chew Tobacco: No; Hx Alcohol Use: No Hx Substance Use: No Preferred Language: Mosotho Communication Ability: Effective Visual Impairment: Limited Hearing Ability: Hard of Hearing Customer Support Consultant Required: No Beliefs That Will Affect Care: None marital status: / Current Living Situation: Family Current Living Situation Comment: with son current occupational status: retired How many Children do You have: 4 Feels Safe at Home: Yes Childhood Exposure to Second-Hand Smoke: Yes (father smoked in home ) Diet: regular caffeine: Yes (iced tea ) during the past year weight has: remained stable Dental Care, Regularly: Yes Physical Activity Frequency: 5-6 Times per Week Physical Activity Frequency Comment: walks - limited due to right knee Seatbelt Use: always Sunscreen Use: Yes Do you think of yourself as: straight/heterosexual Assistive Devices: Glasses Physical Exam Physical Exam: Physical Exam: General: In no acute distress, stated age, well-nourished, good hygiene HEENT: Normocephalic, atraumatic, no scleral icterus, pupils around round, symmetrical, and reactive to light, moist mucus membranes, no JVD, trachea midline, no thyromegaly Chest/Pulm: No respiratory distress, symmetrical chest expansion, clear breath sounds throughout Cardiac: Tachycardic rate with irregular rhythm, no murmurs noted Abdomen: Negative for ascites and bruising, normoactive bowel sounds, soft, non-tender to palpation throughout Musculoskeletal: Symmetrical and without signs of acute trauma, upper and lower extremities with full ROM, no atrophy, spasticity, or flaccidity Extremities: Radial, dorsalis pedis, and posterior tibial pulses are intact and symmetrical, no edema noted in the BL LE's Skin: Warm, dry, no rashes , lesions, or scars noted Neuro: Alert and oriented to person, place, month, year, and president, no focal defects, no tremors noted Psych: No acute distress, calm and cooperative during the exam Results & Data Results & Data Vital Signs (Past 12 Hours) Vital Signs Temp Pulse Pulse Resp BP BP Pulse Ox 11/23/23 15:42 111 H 142/103 H 11/23/23 14:44 110 H 19 100/82 95 11/23/23 14:44 102 H 113/79 11/23/23 14:25 137 H 113/86 11/23/23 13:22 137 H 19 119/94 96 11/23/23 13:12 146 H 122/90 11/23/23 13:11 145 H 20 122/90 96 11/23/23 12:48 144 H 11/23/23 12:09 143 H 24 95 11/23/23 11:52 145 H 18 128/89 94 11/23/23 11:52 95 11/23/23 11:52 36.7 C 145 H 20 143/108 H 94 O2 Del Method 11/23/23 15:42 11/23/23 14:44 Room Air 11/23/23 14:44 11/23/23 14:25 11/23/23 13:22 Room Air 11/23/23 13:12 11/23/23 13:11 Room Air 11/23/23 12:48 11/23/23 12:09 Room Air 11/23/23 11:52 Room Air 11/23/23 11:52 Room Air 11/23/23 11:52 Room Air Laboratory Results Abnormal lab results 11/23/23 11/23/23 Range/Units 12:03 14:40 [place] # (Auto) 0.79 H (0.11-0.59) K/uL Potassium 3.3 L (3.5-5.1) mmol/L Chloride 97 L (98-107) mmol/L Glucose 102 H (70-99(Fasting)) mg/dl B-Natriuretic Peptide 147 H (0-100) pg/ml Ur Leukocyte Esterase Trace H (Negative) Diagnostic Findings Chest X-Ray 11/23/23 12:05 XR chest 1V portable HISTORY: Chest pain, nonspecific COMPARISON: Chest 11/20/2023 FINDINGS: No pneumothorax. The cardiac silhouette remains mildly enlarged. Small bilateral pleural effusions are again noted. Mild interstitial thickening which is likely chronic. Left basilar linear densities favor subsegmental atelectasis. No new focal lung consolidations to suggest pneumonia. No evidence for pulmonary edema. Calcifications within the aortic knob. No acute fractures. IMPRESSION: Stable mild cardiomegaly and small bilateral pleural effusions. ACT 112: Negative or not required by law. Electronically signed by: Jay Valderrama M.D. 11/23/2023 12:41 PM ECG Additional Comments: Supraventricular tachycardia Possible Old Anteroseptal infarct (cited on or before 30-Jan-2016) Abnormal ECG When compared with ECG of 20-Nov-2023 12:33, Vent. rate has increased by 65 bpm Confirmed by Varun Garza ([id number]) on 11/23/2023 3:35:18 PM Code Status & VTE Plan Code Status Full code VTE Prophylaxis Plan VTE Prophylaxis will be ordered: Yes Supervising Physician Co-Signing Physician Notes Patient seen and examined, chart reviewed, case discussed with Nelson Smith PA-C and I agree with the assessment and plan as above except as otherwise noted Labs and images reviewed 83-year-old female with history of SVT, MGUS, PMR, GERD who presented for evaluation of tachycardia. DVT included A-fib, MAT, SVT. Volume contracted. Responded to 3 doses of IV Lopressor and electrolyte repletion. Was reviewed with cardiology, suspected underlying a flutter EKG repeat consistent with atrial fibrillation. Echo pending. Risks/benefits of anticoagulation were discussed with patient who is agreeable, will heparinize and target transition to Eliquis tomorrow morning. Seen at the bedside, she is nondistressed. Normotensive, heart rate fluctuating to [id number]. No chest pain, chest pressure. Agree with above. OPtimize K 4.0, Mg 2.0. May be difficult to control if in flutter. +IVF to optimize volume status Seen on reassessment 130s. Lungs clear, no edema. Additional fluids running. BP normotensive. Amio not recommended due to lack of prior anticoagulation and risk of chemical cardioversion. +5mg cardizem trialed for rate control with minimal improvement, BP 110s. Pt asymptomatic. PG Care Time/CCT Total # of Minutes Spent Total Time Spent with Patient: Total time spent is greater than 50% in coordination of care (as documented) at patient's floor/unit and/or counseling patient: Coding [place] [address] INT INP/OBS CARE 3/75MIN Patient Type Established Medical Decision Making High Complexity Diagnoses Narrow complex tachycardia I47.19 Supraventricular tachycardia, paroxysmal I47.1 Hypokalemia E87.6 Polymyalgia rheumatica M35.3
--- NOTE | 2023-11-23 16:32 | Electrocardiogram Report ---
Test Reason : Blood Pressure : */* mmHG Vent. Rate : 97 BPM Atrial Rate : * BPM P-R Int : * ms QRS Dur : 66 ms QT Int : 332 ms P-R-T Axes : * 44 54 degrees QTcB Int : 421 ms Atrial fibrillation Low voltage QRS Possible Old Septal infarct (cited on or before 30-Jan-2016) Abnormal ECG When compared with ECG of 23-Nov-2023 11:46, Atrial fibrillation has replaced Supraventricular tachycardia (possibly aflutter) Vent. rate has decreased by 50 bpm Confirmed by Varun Garza ([id number]) on 11/23/2023 4:31:21 PM Referred By: REFERRED SELF Confirmed By: Varun Garza
[2023-11-23 16:59] LABS: Thyroid Stimulating Hormone 1.962 uIu/ml (0.300-4.500)
[2023-11-23] MEDS ORDERED: Heparin IV Adult Wt-Based Low-Dose w/ INITIAL Bolus Protocol IV SCH (17:07)
[2023-11-23] MEDS: METOPROLOL SUCC 50MG EXT REL TAB PO STA (17:13)
[2023-11-23] MEDS: HEPARIN SODIUM/DEXTROSE 25,000 UNITS/500 ML BAG IV SCH (17:31)
[2023-11-23] MEDS: HEPARIN SOD (PORCINE) 1000 UNIT/ML IV ONE (17:33)
[2023-11-23 18:08] LABS: Magnesium 2.4 mg/dl (1.7-2.4); Potassium 3.7 mmol/L (3.5-5.1)
[2023-11-23] MEDS: LACTATED RINGER'S 1,000 ML IV SCH (20:18)
[2023-11-23] MEDS: LACTATED RINGER'S 250 ML IV ONE (20:55)
[2023-11-23] MEDS: dilTIAZem HCl 5 MG/ML 5 ML VIAL IV STA (21:08)
[2023-11-24 00:12] LABS: ANTI-Xa, UFH(UnfractionatedHep 0.24 IU/ml (0.3-0.7)
[2023-11-24 06:17] LABS: Basophils # (auto) 0.03 K/uL (0.00-0.20); Basophils % (auto) 0.5 %; Eosinophils # (auto) 0.18 K/uL (0.00-0.50); Eosinophils % (auto) 2.8 %; Hematocrit (blood only) 36.8 % (37.0-47.0); Hemoglobin 12.7 g/dl (12.0-16.0); Immature Granulocytes # (auto) 0.01 K/uL (0.01-0.20); Immature Granulocytes % (auto) 0.2 %; Lymphocytes # (auto) 2.04 K/uL (1.20-3.40); Mean Corpuscular Hemoglobin 31.4 pg (25.0-34.0); Mean Corpuscular Hgb Conc 34.5 g/dL (32.0-36.0); Mean Corpuscular Volume 90.9 fL (80.0-100.0); Mean Platelet Volume 10.8 fL (9.4-12.4); Monocytes # (auto) 0.59 K/uL (0.11-0.59); Monocytes % (auto) 9.3 %; Neutrophils # (auto) 3.52 K/uL (1.40-6.50); Neutrophils % (auto) 55.2 %; Platelet Count 158 K/uL (130-400); RDW Coefficient of Variation 12.9 % (11.5-14.5); RDW Standard Deviation 42.9 fL (36.4-46.3); Red Blood Count 4.05 M/uL (4.20-5.40); White Blood Count 6.37 K/ul (4.8-10.8)
[2023-11-24 06:29] LABS: Albumin Globulin Ratio 1.1 (0.9-2); Albumin Level 3.5 gm/dl (3.4-5.0); BUN Creatinine Ratio 28.6 (10-20); Bilirubin,Total 0.7 mg/dl (0.2-1.0); Calcium 8.9 mg/dl (8.6-10.3); Creatinine Clr Calc Pharmacy 89.8 ml/min; Est GFR (African American) 111.4 ml/min; Est GFR (Non-African American) 96.1 ml/min; Globulin 3.2 gm/dl (2.5-4.0); Magnesium 2.1 mg/dl (1.7-2.4); Potassium 3.8 mmol/L (3.5-5.1); Total Protein 6.7 gm/dl (6.0-8.3)
[2023-11-24 07:16] LABS: ANTI-Xa, UFH(UnfractionatedHep 0.18 IU/ml (0.3-0.7); INR 1.1 (0.9-1.1); Prothrombin Time 11.6 Seconds (9.0-12.0)
[2023-11-24] MEDS ORDERED: STAT IV Infusion **Titration per Protocol STA (08:08)
[2023-11-24] MEDS: dilTIAZem HCL 125 MG in DEXTROSE 5% 100 ML IV SCH (08:36)
[2023-11-24] MEDS: dilTIAZem HCl 5 MG/ML 5 ML VIAL IV STA (08:46)
--- NOTE | 2023-11-24 09:36 | XCELERA ---
[id number]
[2023-11-24] MEDS ORDERED: HEPARIN SOD (PORCINE) 1000 UNIT/ML IV ONE (09:37)
--- NOTE | 2023-11-24 09:42 | Cardiology Consultation ---
Date of Consultation November 24, 2023 Assessment & Plan (1) Narrow complex tachycardia: (2) Atrial flutter with rapid ventricular response: (3) Paroxysmal atrial fibrillation: (4) Acute diastolic CHF (congestive heart failure): Plan Mrs. Bolaños is an 83-year-old female with a history of PSVT, MGUS, PMR, and GERD who was admitted on 11/23/23 with a Narrow Complex Tachycardia (A-Flutter vs PSVT), Newly Diagnosed Paroxysmal Atrial Fibrillation, and Acute Diastolic CHF. Patient presented with dyspnea with minimal exertion and playing out prematurely over the preceding 2 weeks. She was noted to be tachycardic with heart rate in the 140s during her PCP appointment on the morning of admission. On arrival to the ER she was noted be tachycardic with heart rate in the 140s but was otherwise stable. Labs were significant for a potassium of 3.3 mmol/L, Mg of 1.9 mg/dL, high-sensitivity troponin I is normal at 9.1 pg/mL, BNP is elevated at 147 pg/mL, full respiratory BioFire negative, and UA with trace leukocyte esterase. Chest x-ray was read as stable mild cardiomegaly and small bilateral pleural effusions. Initial EKG showed a narrow complex tachycardia (PSVT vs A- Flutter) at 147 bpm with possible old anterior septal infarct. Patient was initially given 10 mEq IV KCl, KCl 40 mEq orally, 1 g IV magnesium sulfate, 500 mL NSS, and a total of 3 doses 5 mg IV Metoprolol Tartrate -- heart rate came down into the 110's. On subsequent EKG 11/23/23 at 1525 -- her rhythm is A-Fib with RVR. The patient had been recently seen in the [facility] ER on 11/20/2023 with a chief complaint of shortness of breath. Workup at that time was significant for a BNP of 168 pg/mL, CTA of the chest negative for PE but showing bilateral pleural effusions, and negative bilateral LE venous Doppler scans. EKG during that visit showed sinus rhythm with first-degree AV block with old septal infarct. The patient was discharged with 40 mg p.o. Lasix daily x 4 days. Patient is currently being seen in room 457. She just started her IV Cardizem drip, she is in a narrow complex and regular tachycardia at 132 bpm. Her breathing is much improved today. Oddly, the patient has not had any sensation of tachycardia or palpitations at any point despite her elevated heart rates. Patient has not had any angina pectoris nor has she had any neurologic symptoms suggestive of stroke or mini stroke. In addition to her IV Cardizem and oral Metoprolol Tartrate the patient is also on a heparin drip. We discussed the management of atrial flutter and atrial fibrillation, this patient would likely benefit from an atrial flutter ablation -- which would likely reduce her atrial fib burden -- as it appears her atrial flutter degraded into atrial fibrillation during this hospitalization. Recommend the followin. Continue IV Cardizem drip. Convert to oral Diltiazem CD as approaching discharge provided it adequately controls her heart rate. 2. Continue Metoprolol Tartrate 50 mg b.i.d.. 3. Continue Heparin drip, convert to Eliquis at discharge. 4. Monitor daily body weights, I&Os. 5. Low-sodium diet. 6. Use IV Lasix as needed. 7. I think it would beneficial to get Dr. Ham involved in her care. Thank you for asking us to see this patient in consultation. We will continue to follow her along while hospitalized. History of Present Illness Reason for Consultation: -- Atrial Flutter vs SVT. -- Newly diagnosed Paroxysmal Atrial Fibrillation. Requesting Physician: Sigifredo Cruz MD Attending Physician: Abran Jacobsen MD PhD History of Present Illness Mrs. Bolaños is an 83-year-old female with a history of PSVT, MGUS, PMR, and GERD who presented to [facility] ER on 11/23/2023 after seeing her PCP. She complained of dyspnea with minimal exertion and playing out prematurely over the preceding 2 weeks. She was noted to be tachycardic with heart rate in the 140s during her PCP appointment this morning. On arrival to the ER she was noted be tachycardic with heart rate in the 140s but was otherwise stable. Labs were significant for a potassium of 3.3 mmol/L, Mg of 1.9 mg/dL, high-sensitivity troponin I is normal at 9.1 pg/mL, BNP is elevated at 147 pg/mL, full respiratory BioFire negative, and UA with trace leukocyte esterase. Chest x-ray was read as stable mild cardiomegaly and small bilateral pleural effusions. Initial EKG showed a narrow complex tachycardia (PSVT vs A-Flutter) at 147 bpm with possible old anterior septal infarct. Patient was initially given 10 mEq IV KCl, KCl 40 mEq orally, 1 g IV magnesium sulfate, 500 mL NSS, and a total of 3 doses 5 mg IV metoprolol tartrate -- heart rate came down into the 110's. On subsequent EKG 11/23/23 at 1525 -- her rhythm is A-Fib with RVR. The patient had been recently seen in the [facility] ER on 11/20/2023 with a chief complaint of shortness of breath. Workup at that time was significant for a BNP of 168 pg/mL, CTA of the chest negative for PE but showing bilateral pleural effusions, and negative bilateral LE venous Doppler scans. EKG during that visit showed sinus rhythm with first-degree AV block with old septal infarct. The patient was discharged with 40 mg p.o. Lasix daily x 4 days. Patient is currently being seen in room 457. She just started her IV Cardizem drip, she is in a narrow complex and regular tachycardia at 132 bpm. Her breathing is much improved today. Oddly, the patient has not had any sensation of tachycardia or palpitations at any point despite her elevated heart rates. She further denies any chest pain, heaviness, tightness, pressure, or discomfort. She denies any exertional neck, jaw, back, arm pain. She did sleep last night with the head of her bed elevated, she did not attempt to lie down flat. She denies any sensation of her heart racing. She denies any syncope or near-syncope. She has not had any neurologic symptoms suggestive of stroke or mini stroke. Patient is also on a heparin drip. Patient is compliant with her medications. She denies any bleeding disorders, GI bleeding, or hematuria. Allergies Allergy/AdvReac Type Severity Reaction Status Date / Time doxycycline AdvReac Intermediate Muscle Pain Verified 11/23/23 10:36 Home Medications Medication Instructions Recorded Confirmed Type cholecalciferol (vitamin D3) 25 1,000 units PO QAM 12/21/18 11/23/23 History mcg (1,000 unit) tablet triamcinolone acetonide 0.1 % 1 applic topical BID PRN . 12/17/21 11/23/23 History topical cream Wheelchair (Manual) #1 ea 01/30/23 11/23/23 Rx esomeprazole magnesium 40 mg 40 mg PO QAM #90 caps 02/18/23 11/23/23 Rx capsule,delayed release (Nexium) metoprolol succinate 25 mg 37.5 mg (1.5 x 25 mg) PO QAM #135 09/09/23 11/23/23 Rx tablet,extended release 24 hr tabs furosemide 40 mg tablet (Lasix) 40 mg PO DAILY #4 tabs 11/20/23 11/23/23 Rx potassium chloride 20 mEq 20 meq PO DAILY #4 tabs 11/20/23 11/23/23 Rx tablet,extended release Patient History Medical History Hard of hearing PMR (polymyalgia rheumatica) History of COVID-2020>resolved Mitral regurgitation Tremor, essential head Diverticulosis of colon Cystocele, midline Surgical History History of cataract surgery History of colonoscopy History of tooth extraction H/O breast biopsy open/benign Family History Father Prostate cancer Mother Breast cancer Denies family history of Ovarian cancer Myocardial infarction Lung cancer Colorectal cancer Uterine cancer Social History Smoking Status: Never smoker Second Hand Exposure: No; Do You Dip or Chew Tobacco: No; Hx Alcohol Use: No Hx Substance Use: No Preferred Language: Khmer Communication Ability: Effective Visual Impairment: Limited Hearing Ability: Hard of Hearing Gas Leak Inspector Helper Required: No Beliefs That Will Affect Care: None marital status: / Current Living Situation: Family Current Living Situation Comment: Son lives with patient current occupational status: retired How many Children do You have: 4 Feels Safe at Home: Yes Safety Concerns: Feels Safe At This Time Childhood Exposure to Second-Hand Smoke: Yes (father smoked in home ) Diet: regular caffeine: Yes (iced tea ) during the past year weight has: remained stable Dental Care, Regularly: Yes Physical Activity Frequency: 5-6 Times per Week Physical Activity Frequency Comment: walks - limited due to right knee Seatbelt Use: always Sunscreen Use: Yes Do you think of yourself as: straight/heterosexual Assistive Devices: Glasses Review of Systems Review of Systems: -- 10 point ROS completed and is negativ e with the exception of what is mentioned in the HPI. Physical Exam Physical Exam: Blood pressure is 111/72, pulse 132 bpm and regular. GENERAL: Patient in no acute distress. HEENT: Head is atraumatic, normocephalic. EOM's intact. Facies symmetric. No perioral cyanosis. NECK: No JVD. JVP is elevated. Carotid upstrokes are + 2 bilaterally without bruits. CHEST/LUNGS: Clear to auscultation throughout all lung gomez. No wheezes, rales, or crackles. CVS: S1 and S2 are regular, tachycardic with a grade 1/6 apical holosystolic murmur. No diastolic murmurs. No gallops or rubs. PMI is nonpalpable. No lifts, heaves, or thrills. No abdominal aortic or renal bruits. ABDOMINAL EXAM: Bowel sounds are present. EXTREMITIES: No clubbing or cyanosis. No edema. Intact radial pulses bilaterally. NEUROLOGIC EXAM: Patient is awake, alert, and oriented. Pleasant and cooperative. Answers questions appropriately. Speech is clear. ECHOCARDIOGRAM 11/24/23: 1. Normal LV systolic function, LVEF 65% to 70%. 2. Normal wall motion. 3. Moderate concentric LVH. 4. Normal RV size and systolic function. 5. Moderate mitral annular calcification . 6. [id number] mitral regurgitation . 7. Left atrium is moderately dilated. 8. IVC is mildly dilated. Results & Data Vital Signs (Past 12 Hours) Vital Signs Temp Pulse Pulse Resp BP BP Pulse Ox 11/24/23 09:03 111/72 11/24/23 08:31 36.8 C 134 H 18 122/81 93 11/24/23 04:17 36.8 C 129 H 16 110/77 93 11/24/23 02:20 130 H 123/88 11/24/23 01:00 129 H 105/75 11/23/23 23:05 36.4 C L 129 H 18 125/86 95 11/23/23 22:42 129 H 11/23/23 22:00 11/23/23 22:00 36.7 C 105 H 18 132/83 94 O2 Del Method 11/24/23 09:03 11/24/23 08:31 Room Air 11/24/23 04:17 Room Air 11/24/23 02:20 11/24/23 01:00 11/23/23 23:05 Room Air 11/23/23 22:42 11/23/23 22:00 Room Air 11/23/23 22:00 Room Air Laboratory Results Laboratory Results - last 24 hr 11/23/23 11/23/23 11/23/23 12:03 12:42 13:19 WBC 8.02 RBC 4.67 Hgb 14.5 Hct 43.3 MCV 92.7 MCH 31.0 MCHC 33.5 RDW Std Deviation 44.8 RDW Coeff of Joe 13.2 Plt Count 173 MPV 10.6 Immature Gran % (Auto) 0.1 Neut % (Auto) 68.0 Lymph % (Auto) 20.6 [place] % (Auto) 9.9 Eos % (Auto) 1.2 Baso % (Auto) 0.2 Neut # (Auto) 5.45 Lymph # (Auto) 1.65 [place] # (Auto) 0.79 H Eos # (Auto) 0.10 Baso # (Auto) 0.02 Immature Gran # (Auto) 0.01 PT 11.5 INR 1.1 Heparin Anti-Xa, Unfract Sodium 137 Potassium 3.3 L Chloride 97 L Carbon Dioxide 31 Anion Gap 9 BUN 11 Creatinine 0.62 Est Cr Clr Drug Dosing 61.0 Est GFR ( Amer) 98.0 Est GFR (Non-Af Amer) 84.6 BUN/Creatinine Ratio 17.7 Glucose 102 H Calcium 9.3 Phosphorus 3.9 Magnesium 1.9 Total Bilirubin 0.6 AST 26 ALT 20 Alkaline Phosphatase 75 Troponin I High Sens 9.1 B-Natriuretic Peptide 147 H Total Protein 8.2 Albumin 4.2 Globulin 4.0 Albumin/Globulin Ratio 1.1 Lipase 20 Procalcitonin < 0.02 TSH 1.962 Random Cortisol 8.07 Urine Color Urine Appearance Urine pH Ur Specific [place] Urine Protein Urine Glucose (UA) Urine Ketones Urine Blood Urine Nitrite Urine Bilirubin Urine Urobilinogen Ur Leukocyte Esterase Urine WBC (Auto) Urine RBC (Auto) U Hyaline Cast (Auto) U Epithel Cells (Auto) Urine Bacteria (Auto) Adenovirus (PCR) Not Detected B. pertussis DNA (PCR) Not Detected B.parapertussis DNA PCR Not Detected C. pneumoniae DNA (PCR) Not Detected Coronavirus OC43 (PCR) Not Detected Coronavirus HKU1 (PCR) Not Detected Coronavirus 229E (PCR) Not Detected SARS-CoV-2 (PCR) Not Detected Coronavirus NL63 (PCR) Not Detected Human Metapneumovir PCR Not Detected Influenza Type A (PCR) Not Detected Influenza Type B (PCR) Not Detected M. pneumoniae (PCR) Not Detected Parainfluenza 1 (PCR) Not Detected Parainfluenza 2 (PCR) Not Detected Parainfluenza 3 (PCR) Not Detected Parainfluenza 4 (PCR) Not Detected RSV (PCR) Not Detected Entero/Rhino (PCR) Not Detected 11/23/23 11/23/23 11/23/23 14:40 17:40 23:18 WBC RBC Hgb Hct MCV MCH MCHC RDW Std Deviation RDW Coeff of Joe Plt Count MPV Immature Gran % (Auto) Neut % (Auto) Lymph % (Auto) [place] % (Auto) Eos % (Auto) Baso % (Auto) Neut # (Auto) Lymph # (Auto) [place] # (Auto) Eos # (Auto) Baso # (Auto) Immature Gran # (Auto) PT INR Heparin Anti-Xa, Unfract 0.24 L Sodium Potassium 3.7 Chloride Carbon Dioxide Anion Gap BUN Creatinine Est Cr Clr Drug Dosing Est GFR ( Amer) Est GFR (Non-Af Amer) BUN/Creatinine Ratio Glucose Calcium Phosphorus Magnesium 2.4 Total Bilirubin AST ALT Alkaline Phosphatase Troponin I High Sens B-Natriuretic Peptide Total Protein Albumin Globulin Albumin/Globulin Ratio Lipase Procalcitonin TSH Random Cortisol Urine Color Yellow Urine Appearance Clear Urine pH 7.0 Ur Specific [place] 1.009 Urine Protein Negative Urine Glucose (UA) Negative Urine Ketones Negative Urine Blood Negative Urine Nitrite Negative Urine Bilirubin Negative Urine Urobilinogen Negative Ur Leukocyte Esterase Trace H Urine WBC (Auto) 0-5 Urine RBC (Auto) 0-2 U Hyaline Cast (Auto) 0-2 U Epithel Cells (Auto) 0-2 Urine Bacteria (Auto) None Seen Adenovirus (PCR) B. pertussis DNA (PCR) B.parapertussis DNA PCR C. pneumoniae DNA (PCR) Coronavirus OC43 (PCR) Coronavirus HKU1 (PCR) Coronavirus 229E (PCR) SARS-CoV-2 (PCR) Coronavirus NL63 (PCR) Human Metapneumovir PCR Influenza Type A (PCR) Influenza Type B (PCR) M. pneumoniae (PCR) Parainfluenza 1 (PCR) Parainfluenza 2 (PCR) Parainfluenza 3 (PCR) Parainfluenza 4 (PCR) RSV (PCR) Entero/Rhino (PCR) 11/24/23 05:48 WBC 6.37 RBC 4.05 L Hgb 12.7 Hct 36.8 L MCV 90.9 MCH 31.4 MCHC 34.5 RDW Std Deviation 42.9 RDW Coeff of Joe 12.9 Plt Count 158 MPV 10.8 Immature Gran % (Auto) 0.2 Neut % (Auto) 55.2 Lymph % (Auto) 32.0 [place] % (Auto) 9.3 Eos % (Auto) 2.8 Baso % (Auto) 0.5 Neut # (Auto) 3.52 Lymph # (Auto) 2.04 [place] # (Auto) 0.59 Eos # (Auto) 0.18 Baso # (Auto) 0.03 Immature Gran # (Auto) 0.01 PT 11.6 INR 1.1 Heparin Anti-Xa, Unfract 0.18 L Sodium 134 L Potassium 3.8 Chloride 101 Carbon Dioxide 27 Anion Gap 6 BUN 12 Creatinine 0.42 L Est Cr Clr Drug Dosing 89.8 Est GFR ( Amer) 111.4 Est GFR (Non-Af Amer) 96.1 BUN/Creatinine Ratio 28.6 H Glucose 101 H Calcium 8.9 Phosphorus Magnesium 2.1 Total Bilirubin 0.7 AST 18 ALT 14 Alkaline Phosphatase 63 Troponin I High Sens B-Natriuretic Peptide Total Protein 6.7 Albumin 3.5 Globulin 3.2 Albumin/Globulin Ratio 1.1 Lipase Procalcitonin TSH Random Cortisol Urine Color Urine Appearance Urine pH Ur Specific [place] Urine Protein Urine Glucose (UA) Urine Ketones Urine Blood Urine Nitrite Urine Bilirubin Urine Urobilinogen Ur Leukocyte Esterase Urine WBC (Auto) Urine RBC (Auto) U Hyaline Cast (Auto) U Epithel Cells (Auto) Urine Bacteria (Auto) Adenovirus (PCR) B. pertussis DNA (PCR) B.parapertussis DNA PCR C. pneumoniae DNA (PCR) Coronavirus OC43 (PCR) Coronavirus HKU1 (PCR) Coronavirus 229E (PCR) SARS-CoV-2 (PCR) Coronavirus NL63 (PCR) Human Metapneumovir PCR Influenza Type A (PCR) Influenza Type B (PCR) M. pneumoniae (PCR) Parainfluenza 1 (PCR) Parainfluenza 2 (PCR) Parainfluenza 3 (PCR) Parainfluenza 4 (PCR) RSV (PCR) Entero/Rhino (PCR) Diagnostic Findings CXR 11/23/23: FINDINGS: No pneumothorax. The cardiac silhouette remains mildly enlarged. Small bilateral pleural effusions are again noted. Mild interstitial thickening which is likely chronic. Left basilar linear densities favor subsegmental atelectasis. No new focal lung consolidations to suggest pneumonia. No evidence for pulmonary edema. Calcifications within the aortic knob. No acute fractures. IMPRESSION: Stable mild cardiomegaly and small bilateral pleural effusions. Medications Administered Medication List Heparin Sodium/Dextrose (Heparin Sodium/Dextrose) 25,000 units in 500 mls @ 16 mls/hr IV .Q24H HARIKA; Protocol Stop: 12/23/23 17:14 Last Titration: 11/24/23 09:31 Dose: 800 units/hr, 16 mls/hr Documented By: COLEMAN Co-signed By: DTT Titration: 11/24/23 07:13 Dose: 700 units/hr, 14 mls/hr Documented By: COLEMAN Co-signed By: GEETHA Titration: 11/24/23 00:14 Dose: 700 units/hr, 14 mls/hr Documented By: GEETHA Co-signed By: DARRYL Admin: 11/23/23 17:31 Dose: 650 units/hr, 13 mls/hr Documented By: BRAYDEN Co-signed By: MERRITT Diltiazem HCl 125 mg/ Dextrose 125 mls @ 5 mls/hr IV .Q24H HARIKA; Protocol Stop: 12/24/23 08:14 Last Admin: 11/24/23 08:36 Dose: 5 mg/hr, 5 mls/hr Documented By: MTP Co-signed By: CORKY Discontinued Medications Diltiazem HCl (Diltiazem Hcl 5 Mg/Ml 5 Ml Vial) 5 mg IV NOW STA Stop: 11/23/23 20:48 Last Admin: 11/23/23 21:08 Dose: 5 mg Documented By: FAMILIA Co-signed By: BASSEM Diltiazem HCl (Diltiazem Hcl 5 Mg/Ml 5 Ml Vial) 10 mg IV NOW STA Stop: 11/24/23 08:09 Last Admin: 11/24/23 08:46 Dose: 10 mg Documented By: COLEMAN Co-signed By: CORKY Heparin Sodium (Porcine) (Heparin Sod (Porcine) 1000 Unit/Ml) 3,000 units IV NOW ONE Stop: 11/23/23 17:14 Last Admin: 11/23/23 17:33 Dose: 3,000 units Documented By: BRAYDEN Co-signed By: MERRITT Magnesium Sulfate/Dextrose (Magnesium Sulfate / D5w) 1 gm in 100 mls @ 100 mls/hr IV NOW STA Stop: 11/23/23 14:18 Last Infusion: 11/23/23 18:24 Dose: Infused Documented By: Admin: 11/23/23 14:39 Dose: 100 mls/hr Documented By: CARLOS Sodium Chloride (Nss) 500 mls @ 999 mls/hr IV .Q31M ONE Stop: 11/23/23 13:48 Last Infusion: 11/23/23 18:25 Dose: Infused Documented By: Admin: 11/23/23 14:39 Dose: 999 mls/hr Documented By: CARLOS Potassium Chloride (K Tahir / Wtr) 10 meq in 100 mls @ 100 mls/hr IV Q1H [facility] Stop: 11/23/23 15:29 Last Admin: 11/23/23 15:38 Dose: Not Given Documented By: Infusion: 11/23/23 15:38 Dose: Infused Documented By: Admin: 11/23/23 14:39 Dose: 100 mls/hr Documented By: CARLOS Potassium Chloride (K Tahir / Wtr) 10 meq in 100 mls @ 100 mls/hr IV Q1H HARIKA Stop: 11/23/23 21:44 Last Infusion: 11/23/23 22:07 Dose: Infused Documented By: Admin: 11/23/23 21:07 Dose: 100 mls/hr Documented By: Infusion: 11/23/23 21:07 Dose: Infused Documented By: Admin: 11/23/23 20:19 Dose: 100 mls/hr Documented By: FAMILIA Lactated Ringer's (Lr) 1,000 mls @ 100 mls/hr IV .Q10H HARIKA Stop: 11/24/23 05:44 Last Infusion: 11/24/23 04:15 Dose: Infused Documented By: Admin: 11/23/23 20:18 Dose: 100 mls/hr Documented By: FAMILIA Lactated Ringer's (Lr) 250 mls @ 999 mls/hr IV .Q16M ONE Stop: 11/23/23 21:02 Last Infusion: 11/23/23 21:14 Dose: Infused Documented By: Admin: 11/23/23 20:55 Dose: 999 mls/hr Documented By: FAMILIA Metoprolol Succinate (Metoprolol Succ 50mg Ext Rel Tab) 37.5 mg PO NOW STA Stop: 11/23/23 16:24 Last Admin: 11/23/23 17:13 Dose: 37.5 mg Documented By: BRAYDEN Metoprolol Tartrate (Metoprolol Tartrate 1 Mg/Ml Vial) 5 mg IV NOW STA Stop: 11/23/23 12:38 Last Admin: 11/23/23 13:12 Dose: 5 mg Documented By: CARLOS Metoprolol Tartrate (Metoprolol Tartrate 1 Mg/Ml Vial) 5 mg IV NOW STA Stop: 11/23/23 13:19 Last Admin: 11/23/23 14:25 Dose: 5 mg Documented By: CARLOS Metoprolol Tartrate (Metoprolol Tartrate 1 Mg/Ml Vial) 5 mg IV NOW STA Stop: 11/23/23 14:14 Last Admin: 11/23/23 15:42 Dose: 5 mg Documented By: CARLOS Metoprolol Tartrate (Metoprolol Tartrate 1 Mg/Ml Vial) 5 mg IV NOW STA Stop: 11/23/23 19:10 Last Admin: 11/23/23 19:18 Dose: 5 mg Documented By: RAF Potassium Chloride (Potassium Chloride Crtab 20 Meq Tabcr) 40 meq PO NOW STA Stop: 11/23/23 15:22 Last Admin: 11/23/23 15:39 Dose: 20 meq Documented By: CARLOS PG Care Time/CCT Total # of Minutes Spent Total Time Spent with Patient: Total time spent is greater than 50% in coordination of care (as documented) at patient's floor/unit and/or counseling patient:43 [place] [address] INT INP/OBS CARE 2/55MIN Patient Type Established History Comprehensive Exam Comprehensive Medical Decision Making Moderate Complexity Diagnoses Narrow complex tachycardia I47.19 Atrial flutter with rapid ventricular response I48.92 Paroxysmal atrial fibrillation I48.0 Acute diastolic CHF (congestive heart failure) I50.31 Time Spent (min) 64
[2023-11-24] MEDS: HEPARIN IV BOLUS 2,000 UNITS in SYRINGE 0 ML IV ONE (10:26)
[2023-11-24] MEDS: METOPROLOL SUCC 50MG EXT REL TAB PO SCH (10:35)
--- NOTE | 2023-11-24 15:23 | Hospitalist Progress Note ---
Date of Service November 24, 2023 Assessment & Plan (1) Narrow complex tachycardia: Plan: Present to the ED due to being significantly tachycardic with heart rate in the 140s at her PCP office earlier today ECG on arrival was consistent with SVT and patient was given 3 doses of 5 mg IV Lopressor, 500 mL NSS, 1 g elevated, 40M EQ p.o. KCl, and 10 mEq IV KCl Patient has been started on a Cardizem drip Cardiology on board Echocardiogram reviewed. TSH within normal limits Electrolytes unremarkable Continue heparin drip Continue metoprolol (2) Supraventricular tachycardia, paroxysmal: Plan: See narrow complex tachycardia (3) Hypokalemia: Plan: Initial potassium level of 3.3 on arrival with mag of 1.9 Likely due to p.o. Lasix use over the past 4 days status post 40 mEq p.o. KCl and 10 mEq IV KCl in the ED Monitor daily renal function electrolytes (4) Polymyalgia rheumatica: Plan: Recently completed a year-long prednisone taper last month Admission and Anticipated Discharge Date Admission Date: November 23, 2023 Subjective Patient feels well. Denies palpitations, chest pain, shortness of breath. Daughter at the bedside. Review of Systems Review of Systems: All systems reviewed & are unremarkable except as noted in Subjective Physical Exam Physical Exam: General: Awake, conversant Heart: S1, S2/irregularly irregular rhythm fast rate, no murmur rubs or gallops Lungs: Clear to auscultation bilaterally. Normal effort Abdomen: Soft/nontender/nondistended. No hepatosplenomegaly Extremities: No clubbing/cyanosis. No edema Behavior: Appropriate, cooperative Results & Data Results & Data Vital Signs (Past 12 Hours) Vital Signs Temp Pulse Resp BP BP Pulse Ox O2 Del Method 11/24/23 11:21 36.8 C 131 H 16 100/69 94 Room Air 11/24/23 10:52 109/73 11/24/23 09:39 99/73 L 11/24/23 09:03 111/72 11/24/23 08:31 36.8 C 134 H 18 122/81 93 Room Air 11/24/23 04:17 36.8 C 129 H 16 110/77 93 Room Air Laboratory Results Abnormal lab results 11/23/23 11/24/23 Range/Units 23:18 05:48 RBC 4.05 L (4.20-5.40) M/uL Hct 36.8 L (37.0-47.0) % Heparin Anti-Xa, Unfract 0.24 L 0.18 L (0.3-0.7) IU/ml Sodium 134 L (136-145) mmol/L Creatinine 0.42 L (0.6-1.2) mg/dl BUN/Creatinine Ratio 28.6 H (10-20) Glucose 101 H (70-99(Fasting)) mg/dl PG Care Time/CCT Total # of Minutes Spent Total Time Spent with Patient: Total time spent is greater than 50% in coordination of care (as documented) at patient's floor/unit and/or counseling patient: Coding Level of Care Code 41699 SUB INP/OBS CARE 2/35MIN Diagnoses Narrow complex tachycardia I47.19 Supraventricular tachycardia, paroxysmal I47.1 Hypokalemia E87.6 Polymyalgia rheumatica M35.3
[2023-11-24 16:34] LABS: ANTI-Xa, UFH(UnfractionatedHep 0.38 IU/ml (0.3-0.7)
[2023-11-24] MEDS: PANTOprazole 40 MG TAB PO ONE (21:14)
[2023-11-25 04:08] LABS: Basophils # (auto) 0.03 K/uL (0.00-0.20); Basophils % (auto) 0.5 %; Eosinophils # (auto) 0.29 K/uL (0.00-0.50); Eosinophils % (auto) 4.7 %; Hematocrit (blood only) 36.9 % (37.0-47.0); Hemoglobin 12.3 g/dl (12.0-16.0); Immature Granulocytes # (auto) 0.01 K/uL (0.01-0.20); Immature Granulocytes % (auto) 0.2 %; Lymphocytes % (auto) 37.2 %; Mean Corpuscular Hemoglobin 31.1 pg (25.0-34.0); Mean Corpuscular Hgb Conc 33.3 g/dL (32.0-36.0); Mean Corpuscular Volume 93.2 fL (80.0-100.0); Mean Platelet Volume 10.4 fL (9.4-12.4); Monocytes # (auto) 0.67 K/uL (0.11-0.59); Monocytes % (auto) 10.8 %; Neutrophils # (auto) 2.88 K/uL (1.40-6.50); Neutrophils % (auto) 46.6 %; Platelet Count 152 K/uL (130-400); RDW Coefficient of Variation 12.9 % (11.5-14.5); RDW Standard Deviation 44.1 fL (36.4-46.3); Red Blood Count 3.96 M/uL (4.20-5.40); White Blood Count 6.18 K/ul (4.8-10.8)
[2023-11-25 04:25] LABS: Albumin Globulin Ratio 0.9 (0.9-2); Albumin Level 3.5 gm/dl (3.4-5.0); BUN Creatinine Ratio 34.5 (10-20); Bilirubin,Total 0.5 mg/dl (0.2-1.0); Calcium 8.6 mg/dl (8.6-10.3); Creatinine Clr Calc Pharmacy 65.5 ml/min; Est GFR (African American) 100.2 ml/min; Est GFR (Non-African American) 86.4 ml/min; Globulin 3.7 gm/dl (2.5-4.0); Magnesium 2.2 mg/dl (1.7-2.4); Potassium 3.8 mmol/L (3.5-5.1); Total Protein 7.2 gm/dl (6.0-8.3)
[2023-11-25 04:38] LABS: ANTI-Xa, UFH(UnfractionatedHep 0.35 IU/ml (0.3-0.7); Prothrombin Time 11.3 Seconds (9.0-12.0)
--- NOTE | 2023-11-25 07:11 | Electrocardiogram Report ---
Test Reason : Blood Pressure : */* mmHG Vent. Rate : 92 BPM Atrial Rate : 264 BPM P-R Int : * ms QRS Dur : 72 ms QT Int : 408 ms P-R-T Axes : -80 54 55 degrees QTcB Int : 504 ms Atrial flutter with variable A-V block Low voltage QRS Old Septal infarct (cited on or before 30-Jan-2016) Abnormal ECG When compared with ECG of 23-Nov-2023 15:25, Atrial flutter has replaced Atrial fibrillation Confirmed by Varun Garza ([id number]) on 11/25/2023 7:10:34 AM Referred By: REFERRED SELF Confirmed By: Varun Garza
[2023-11-25] MEDS: PANTOprazole 40 MG TAB PO SCH (08:14)
[2023-11-25] MEDS: ACETAMINOPHEN 325 MG TAB PO PRN (11:17)
--- NOTE | 2023-11-25 12:56 | Electrocardiogram Report ---
Test Reason : Blood Pressure : */* mmHG Vent. Rate : 67 BPM Atrial Rate : 256 BPM P-R Int : * ms QRS Dur : 68 ms QT Int : 442 ms P-R-T Axes : 59 62 59 degrees QTcB Int : 467 ms Poor data quality, interpretation may be adversely affected Atrial flutter with variable A-V block Low voltage QRS Old Septal infarct (cited on or before 30-Jan-2016) Abnormal ECG When compared with ECG of 24-Nov-2023 15:27, No significant change Confirmed by Varun Garza ([id number]) on 11/25/2023 12:56:48 PM Referred By: REFERRED SELF Confirmed By: Varun Garza
[2023-11-25] MEDS: dilTIAZem HCL 180 MG CAPCR PO STA (13:24)
--- NOTE | 2023-11-25 15:47 | Hospitalist Progress Note ---
Date of Service November 25, 2023 Assessment & Plan (1) Narrow complex tachycardia: Plan: Present to the ED due to being significantly tachycardic with heart rate in the 140s at her PCP office earlier today ECG on arrival was consistent with SVT and patient was given 3 doses of 5 mg IV Lopressor, 500 mL NSS, 1 g elevated, 40M EQ p.o. KCl, and 10 mEq IV KCl Patient has been started on a Cardizem drip Cardiology on board Echocardiogram reviewed. Still on Cardizem drip today Continue metoprolol succinate 50 mg every morning Diltiazem 180 mg started today Titrate off of Cardizem drip Continue heparin drip, switch to Eliquis upon discharge TSH within normal limits Electrolytes unremarkable (2) Supraventricular tachycardia, paroxysmal: Plan: See narrow complex tachycardia (3) Hypokalemia: Plan: Initial potassium level of 3.3 on arrival with mag of 1.9 Likely due to p.o. Lasix use over the past 4 days Improved (4) Polymyalgia rheumatica: Plan: Recently completed a year-long prednisone taper last month Admission and Anticipated Discharge Date Admission Date: November 23, 2023 Subjective Patient does not have any complaints of palpitations, chest pain, shortness of breath. Review of Systems Review of Systems: All systems reviewed & are unremarkable except as noted in Subjective Physical Exam Physical Exam: General: Awake, conversant Heart: S1, S2/irregularly irregular rhythm fast rate, no murmur rubs or gallops Lungs: Clear to auscultation bilaterally. Normal effort Abdomen: Soft/nontender/nondistended. No hepatosplenomegaly Extremities: No clubbing/cyanosis. No edema Behavior: Appropriate, cooperative Results & Data Results & Data Vital Signs (Past 12 Hours) Vital Signs Temp Pulse Resp BP Pulse Ox O2 Del Method 11/25/23 15:26 36.3 C L 85 16 103/66 95 Room Air 11/25/23 11:13 36.8 C 64 16 106/66 98 Room Air 11/25/23 08:17 Room Air 11/25/23 07:43 36.3 C L 113 H 20 132/82 96 Room Air PG Care Time/CCT Total # of Minutes Spent Total Time Spent with Patient: Total time spent is greater than 50% in coordination of care (as documented) at patient's floor/unit and/or counseling patient: Coding Level of Care Code 92509 SUB INP/OBS CARE MIN Diagnoses Narrow complex tachycardia I47.19 Supraventricular tachycardia, paroxysmal I47.1 Hypokalemia E87.6 Polymyalgia rheumatica M35.3
[2023-11-25] MEDS: DOCUSATE SODIUM 100 MG CAP PO PRN (19:53)
[2023-11-26] MEDS: dilTIAZem HCl 5 MG/ML 5 ML VIAL IV STA (03:55)
[2023-11-26 06:09] LABS: Basophils # (auto) 0.02 K/uL (0.00-0.20); Basophils % (auto) 0.4 %; Eosinophils # (auto) 0.26 K/uL (0.00-0.50); Hemoglobin 11.4 g/dl (12.0-16.0); Lymphocytes # (auto) 2.07 K/uL (1.20-3.40); Lymphocytes % (auto) 39.6 %; Mean Corpuscular Hemoglobin 30.6 pg (25.0-34.0); Mean Corpuscular Hgb Conc 33.5 g/dL (32.0-36.0); Mean Corpuscular Volume 91.2 fL (80.0-100.0); Mean Platelet Volume 10.7 fL (9.4-12.4); Monocytes # (auto) 0.54 K/uL (0.11-0.59); Monocytes % (auto) 10.3 %; Neutrophils # (auto) 2.34 K/uL (1.40-6.50); Neutrophils % (auto) 44.7 %; Platelet Count 144 K/uL (130-400); RDW Coefficient of Variation 12.8 % (11.5-14.5); RDW Standard Deviation 42.9 fL (36.4-46.3); Red Blood Count 3.73 M/uL (4.20-5.40); White Blood Count 5.23 K/ul (4.8-10.8)
[2023-11-26 06:34] LABS: Albumin Level 3.4 gm/dl (3.4-5.0); BUN Creatinine Ratio 31.6 (10-20); Bilirubin,Total 0.4 mg/dl (0.2-1.0); Calcium 8.7 mg/dl (8.6-10.3); Creatinine Clr Calc Pharmacy 66.6 ml/min; Est GFR (African American) 100.8 ml/min; Est GFR (Non-African American) 86.9 ml/min; Globulin 3.5 gm/dl (2.5-4.0); Magnesium 2.1 mg/dl (1.7-2.4); Potassium 3.9 mmol/L (3.5-5.1); Total Protein 6.9 gm/dl (6.0-8.3)
[2023-11-26 06:36] LABS: ANTI-Xa, UFH(UnfractionatedHep 0.31 IU/ml (0.3-0.7); Prothrombin Time 11.3 Seconds (9.0-12.0)
--- NOTE | 2023-11-26 08:19 | Electrocardiogram Report ---
Test Reason : Blood Pressure : */* mmHG Vent. Rate : 126 BPM Atrial Rate : 252 BPM P-R Int : * ms QRS Dur : 80 ms QT Int : 324 ms P-R-T Axes : 0 50 16 degrees QTcB Int : 469 ms Atrial flutter with 2:1 A-V conduction Low voltage QRS Old Anteroseptal infarct Abnormal ECG When compared with ECG of 25-Nov-2023 11:33, HR has increased by 59 bpm Confirmed by Varun Garza ([id number]) on 11/26/2023 8:18:33 AM Referred By: REFERRED SELF Confirmed By: Varun Garza
[2023-11-26] MEDS ORDERED: dilTIAZem HCL 180 MG CAPCR PO SCH (09:00)
[2023-11-26] MEDS: dilTIAZem HCL 240 MG CAPCR PO SCH (09:23)
--- NOTE | 2023-11-26 15:00 | Hospitalist Progress Note ---
Date of Service November 26, 2023 Assessment & Plan (1) Narrow complex tachycardia: Plan: Present to the ED due to being significantly tachycardic with heart rate in the 140s at her PCP office earlier today ECG on arrival was consistent with SVT and patient was given 3 doses of 5 mg IV Lopressor, 500 mL NSS, 1 g elevated, 40M EQ p.o. KCl, and 10 mEq IV KCl Patient has been started on a Cardizem drip Cardiology on board Echocardiogram reviewed. Off of Cardizem drip today Continue metoprolol succinate 50 mg every morning Patient needed 2 doses of IV Cardizem overnight to control heart rate Will increase the dose of diltiazem to 240 mg starting this morning Will monitor patient on this regimen Likely discharge tomorrow Will switch to Eliquis upon discharge TSH within normal limits Electrolytes unremarkable (2) Supraventricular tachycardia, paroxysmal: Plan: See narrow complex tachycardia (3) Hypokalemia: Plan: Initial potassium level of 3.3 on arrival with mag of 1.9 Likely due to p.o. Lasix use over the past 4 days Improved (4) Polymyalgia rheumatica: Plan: Recently completed a year-long prednisone taper last month Plan Likely discharge tomorrow if heart rate controlled on p.o. regimen Admission and Anticipated Discharge Date Admission Date: November 23, 2023 Subjective Patient feels well. Denies palpitations, chest pain, shortness of breath. Noted that she was given 2 doses of IV Cardizem for rapid heart rate overnight. She has been off of the Cardizem drip Review of Systems Review of Systems: All systems reviewed & are unremarkable except as noted in Subjective Physical Exam Physical Exam: General: Awake, conversant Heart: S1, S2/irregularly irregular rhythm fast rate, no murmur rubs or gallops Lungs: Clear to auscultation bilaterally. Normal effort Abdomen: Soft/nontender/nondistended. No hepatosplenomegaly Extremities: No clubbing/cyanosis. No edema Behavior: Appropriate, cooperative Results & Data Results & Data Vital Signs (Past 12 Hours) Vital Signs Temp Pulse Pulse Resp BP Pulse Ox O2 Del Method 11/26/23 11:49 36.5 C 85 18 119/79 95 Room Air 11/26/23 10:37 Room Air 11/26/23 07:42 109 H 11/26/23 07:33 36.5 C 64 18 119/77 97 Room Air 11/26/23 04:10 128 H 121/77 11/26/23 02:57 36.5 C 123 H 18 126/77 94 Room Air Laboratory Results Abnormal lab results 11/26/23 Range/Units 05:40 RBC 3.73 L (4.20-5.40) M/uL Hgb 11.4 L (12.0-16.0) g/dl Hct 34.0 L (37.0-47.0) % Immature Gran # (Auto) 0.00 L (0.01-0.20) K/uL Sodium 135 L (136-145) mmol/L Creatinine 0.57 L (0.6-1.2) mg/dl BUN/Creatinine Ratio 31.6 H (10-20) Glucose 101 H (70-99(Fasting)) mg/dl PG Care Time/CCT Total # of Minutes Spent Total Time Spent with Patient: Total time spent is greater than 50% in coordination of care (as documented) at patient's floor/unit and/or counseling patient: Coding Level of Care Code 57492 SUB INP/OBS CARE 2/35MIN Diagnoses Narrow complex tachycardia I47.19 Supraventricular tachycardia, paroxysmal I47.1 Hypokalemia E87.6 Polymyalgia rheumatica M35.3
[2023-11-26] MEDS: APIXABAN 5 MG TABLET PO SCH (21:43)
[2023-11-26] MEDS: HEPARIN STOP ORDER ONE (21:43)
--- NOTE | 2023-11-27 09:42 | Cardiology Progress Note ---
Date of Service November 27, 2023 Assessment & Plan (1) Atrial flutter with rapid ventricular response: (2) Paroxysmal atrial fibrillation: (3) Acute diastolic CHF (congestive heart failure): Plan Mrs. Bolaños is an 83-year-old female with a history of PSVT, MGUS, PMR, and GERD who was admitted on 11/23/23 with A-Flutter, Newly Diagnosed Paroxysmal Atrial Fibrillation, and Acute Diastolic CHF. Patient's heart rate seemed to be reasonably well controlled throughout most of the day yesterday but her heart is still racing at night and if she gets up and moves around. Her family members are concerned about her heart rate as well. As we don't know when the onset of her A-Flutter was (she has not had any palpitations or sensation that her heart was racing) we need her anticoagulated for a minimum of 3.5 weeks before pursuing an A-Flutter ablation. We discussed the management of atrial flutter and atrial fibrillation, this patient would benefit from an atrial flutter ablation which would likely reduce her atrial fib burden -- as it appears her atrial flutter degraded into atrial fibrillation during this hospitalization. Recommend the followin. Continue Diltiazem CD 240 mg daily. 2. Continue Metoprolol Succinate ER 50 mg daily. 3. Continue Eliquis 5 mg b.i.d.. 4. IV Digoxin 250 now x 1, monitor response. 5. Send home on Digoxin 125 mcg daily. 6. Monitor daily body weights 7. Low-sodium diet. 8. Discharge on PRN Lasix. 9. Follow-up with me next week when Dr. Ham is in the office so he can meet her as well. We will plan on pursuing an A-Flutter ablation sometime in Mid December 2023. Patient and her family agree with this plan. Patient will be discharged today. Admission and Anticipated Discharge Date Admission Date: November 23, 2023 Subjective Mrs. Bolaños's heart rate seemed to be reasonably well controlled throughout most of the day yesterday but her heart is still racing at night and if she gets up and moves around. Her family members are concerned about her heart rate as well. As we don't know when the onset of her A-Flutter was (she has not had any palpitations or sensation that her heart was racing) we need her anticoagulated for a minimum of 3.5 weeks before pursuing an A-Flutter ablation. ECHOCARDIOGRAM 11/24/23: 1. Normal LV systolic function, LVEF 65% to 70%. 2. Normal wall motion. 3. Moderate concentric LVH. 4. Normal RV size and systolic function. 5. Moderate mitral annular calcification. 6. [id number] mitral regurgitation. 7. Left atrium is moderately dilated. 8. IVC is mildly dilated. Review of Systems Review of Systems: -- As per HPI. Physical Exam Physical Exam: Blood pressure is 129/85, pulse 108 bpm and regular. GENERAL: Patient in no acute distress. HEENT: Head is atraumatic, normocephalic. EOM's intact. Facies symmetric. No perioral cyanosis. NECK: No JVD. JVP is at the level of the clavicle. Carotid upstrokes are + 2 bilaterally. CHEST/LUNGS: Clear to auscultation throughout all lung gomez. No wheezes, rales, or crackles. CVS: S1 and S2 are regular, tachycardic with a grade 1/6 apical holosystolic murmur. No diastolic murmurs. No gallops or rubs. PMI is nonpalpable. No lifts, heaves, or thrills. No abdominal aortic or renal bruits. ABDOMINAL EXAM: Bowel sounds are present. EXTREMITIES: No clubbing or cyanosis. No edema. Intact radial pulses bilaterally. NEUROLOGIC EXAM: Patient is awake, alert, and oriented. Pleasant and cooperative. Answers questions appropriately. Speech is clear. Seed Service Advisor: -- Atrial flutter with heart rates from the 80's up to 130 bpm. Results & Data Vital Signs (Past 12 Hours) Vital Signs Temp Pulse Pulse Resp BP Pulse Ox O2 Del Method 11/27/23 07:41 36.5 C 123 H 20 129/85 97 Room Air 11/27/23 07:12 80 11/27/23 02:49 36.4 C L 127 H 18 105/72 96 Room Air 11/26/23 23:13 84 11/26/23 22:26 36.7 C 86 18 109/71 94 Room Air Medications Administered Medication List Acetaminophen (Acetaminophen 325 Mg Tab) 650 mg PO Q6H PRN PRN Reason: Mild-Mod Pain (Scale 1-6) Stop: 12/24/23 16:55 Last Admin: 11/26/23 04:18 Dose: 650 mg Documented By: Admin: 11/25/23 11:17 Dose: 650 mg Documented By: BARBY Apixaban (Apixaban 5 Mg Tablet) 5 mg PO BID HARIKA Stop: 12/26/23 20:59 Last Admin: 11/27/23 08:54 Dose: 5 mg Documented By: Admin: 11/26/23 21:43 Dose: 5 mg Documented By: KIARA Diltiazem HCl (Diltiazem Hcl 240 Mg Capcr) 240 mg PO QAM HARIKA Stop: 12/26/23 08:59 Last Admin: 11/27/23 08:55 Dose: 240 mg Documented By: Admin: 11/26/23 09:23 Dose: 240 mg Documented By: DALY Docusate Sodium (Docusate Sodium 100 Mg Cap) 100 mg PO BID PRN PRN Reason: constipation Stop: 12/25/23 20:59 Last Admin: 11/26/23 09:23 Dose: 100 mg Documented By: Admin: 11/25/23 19:53 Dose: 100 mg Documented By: GEETHA Metoprolol Succinate (Metoprolol Succ 50mg Ext Rel Tab) 50 mg PO QAM HARIKA Stop: 12/24/23 08:59 Last Admin: 11/27/23 08:55 Dose: 50 mg Documented By: Admin: 11/26/23 09:24 Dose: 50 mg Documented By: Admin: 11/25/23 08:14 Dose: 50 mg Documented By: Admin: 11/24/23 10:35 Dose: 50 mg Documented By: COLEMAN Pantoprazole Sodium (Pantoprazole 40 Mg Tab) 40 mg PO QAM HARIKA Stop: 12/25/23 08:59 Last Admin: 11/27/23 08:55 Dose: 40 mg Documented By: Admin: 11/26/23 09:04 Dose: 40 mg Documented By: Admin: 11/25/23 08:14 Dose: 40 mg Documented By: BARBY Discontinued Medications Diltiazem HCl (Diltiazem Hcl 5 Mg/Ml 5 Ml Vial) 5 mg IV NOW STA Stop: 11/23/23 20:48 Last Admin: 11/23/23 21:08 Dose: 5 mg Documented By: FAMILIA Co-signed By: BASSEM Diltiazem HCl (Diltiazem Hcl 5 Mg/Ml 5 Ml Vial) 10 mg IV NOW STA Stop: 11/24/23 08:09 Last Admin: 11/24/23 08:46 Dose: 10 mg Documented By: MTP Co-signed By: CORKY Diltiazem HCl (Diltiazem Hcl 180 Mg Capcr) 180 mg PO NOW STA Stop: 11/25/23 13:03 Last Admin: 11/25/23 13:24 Dose: 180 mg Documented By: BARBY Diltiazem HCl (Diltiazem Hcl 5 Mg/Ml 5 Ml Vial) 5 mg IV NOW STA Stop: 11/26/23 03:34 Last Admin: 11/26/23 03:55 Dose: 5 mg Documented By: COLTONG Co-signed By: CHRISTIANNE Heparin Sodium (Porcine) (Heparin Sod (Porcine) 1000 Unit/Ml) 3,000 units IV NOW ONE Stop: 11/23/23 17:14 Last Admin: 11/23/23 17:33 Dose: 3,000 units Documented By: BRAYDEN Co-signed By: MERRITT Magnesium Sulfate/Dextrose (Magnesium Sulfate / D5w) 1 gm in 100 mls @ 100 mls/hr IV NOW STA Stop: 11/23/23 14:18 Last Infusion: 11/23/23 18:24 Dose: Infused Documented By: Admin: 11/23/23 14:39 Dose: 100 mls/hr Documented By: CARLOS Sodium Chloride (Nss) 500 mls @ 999 mls/hr IV .Q31M ONE Stop: 11/23/23 13:48 Last Infusion: 11/23/23 18:25 Dose: Infused Documented By: Admin: 11/23/23 14:39 Dose: 999 mls/hr Documented By: CARLOS Potassium Chloride (K Tahir / Wtr) 10 meq in 100 mls @ 100 mls/hr IV Q1H HARIKA Stop: 11/23/23 15:29 Last Admin: 11/23/23 15:38 Dose: Not Given Documented By: Infusion: 11/23/23 15:38 Dose: Infused Documented By: Admin: 11/23/23 14:39 Dose: 100 mls/hr Documented By: CARLOS Heparin Sodium/Dextrose (Heparin Sodium/Dextrose) 25,000 units in 500 mls @ 16 mls/hr IV .Q24H HARIKA; Protocol Stop: 11/26/23 20:59 Last Admin: 11/26/23 09:24 Dose: 800 units/hr, 16 mls/hr Documented By: DALY Co-signed By: AMB(2) Titration: 11/26/23 09:24 Dose: Infused Documented By: DALY Co-signed By: AMB(2) Titration: 11/26/23 07:13 Dose: 800 units/hr, 16 mls/hr Documented By: MMFelisa Co-signed By: LAF Titration: 11/25/23 19:02 Dose: 800 units/hr, 16 mls/hr Documented By: MMFelisa Co-signed By: AMB Titration: 11/25/23 07:21 Dose: 800 units/hr, 16 mls/hr Documented By: AMB Co-signed By: MMFelisa Admin: 11/25/23 03:02 Dose: 800 units/hr, 16 mls/hr Documented By: MMFelisa Co-signed By: DARRYL Titration: 11/25/23 03:02 Dose: Infused Documented By: MMFelisa Co-signed By: DARRYL Admin: 11/24/23 20:00 Dose: Not Given Documented By: MMFelisa Titration: 11/24/23 09:31 Dose: 800 units/hr, 16 mls/hr Documented By: COLEMAN Co-signed By: DTT Titration: 11/24/23 07:13 Dose: 700 units/hr, 14 mls/hr Documented By: COLEMAN Co-signed By: MMFelisa Titration: 11/24/23 00:14 Dose: 700 units/hr, 14 mls/hr Documented By: GEETHA Co-signed By: DARRYL Admin: 11/23/23 17:31 Dose: 650 units/hr, 13 mls/hr Documented By: BRAYDEN Co-signed By: MERRITT Potassium Chloride (K Tahir / Wtr) 10 meq in 100 mls @ 100 mls/hr IV Q1H HARIKA Stop: 11/23/23 21:44 Last Infusion: 11/23/23 22:07 Dose: Infused Documented By: Admin: 11/23/23 21:07 Dose: 100 mls/hr Documented By: Infusion: 11/23/23 21:07 Dose: Infused Documented By: Admin: 11/23/23 20:19 Dose: 100 mls/hr Documented By: FAMILIA Lactated Ringer's (Lr) 1,000 mls @ 100 mls/hr IV .Q10H HARIKA Stop: 11/24/23 05:44 Last Infusion: 11/24/23 04:15 Dose: Infused Documented By: Admin: 11/23/23 20:18 Dose: 100 mls/hr Documented By: FAMILIA Lactated Ringer's (Lr) 250 mls @ 999 mls/hr IV .Q16M ONE Stop: 11/23/23 21:02 Last Infusion: 11/23/23 21:14 Dose: Infused Documented By: Admin: 11/23/23 20:55 Dose: 999 mls/hr Documented By: FAMILIA Diltiazem HCl 125 mg/ Dextrose 125 mls @ 5 mls/hr IV .Q24H HARIKA; Protocol Stop: 12/24/23 08:14 Last Titration: 11/25/23 13:24 Dose: Infused Documented By: BARBY Co-signed By: MARYBETH Admin: 11/25/23 13:09 Dose: Not Given Documented By: Titration: 11/25/23 11:07 Dose: 5 mg/hr, 5 mls/hr Documented By: AMB Co-signed By: KIRK Titration: 11/25/23 07:21 Dose: 7.5 mg/hr, 7.5 mls/hr Documented By: AMB Co-signed By: GEETHA Admin: 11/24/23 23:24 Dose: 7.5 mg/hr, 7.5 mls/hr Documented By: MMFelisa Co-signed By: DARRYL Titration: 11/24/23 23:24 Dose: Infused Documented By: MMFelisa Co-signed By: DARRYL Titration: 11/24/23 08:36 Dose: 7.5 mg/hr, 7.5 mls/hr Documented By: MTP Co-signed By: DTT Admin: 11/24/23 08:36 Dose: 5 mg/hr, 5 mls/hr Documented By: MTP Co-signed By: [facility] Heparin Sodium (Porcine) 2,000 (units/ Syringe) 2 mls @ 10 mls/min IV NOW ONE Stop: 11/24/23 09:46 Last Admin: 11/24/23 10:26 Dose: 10 mls/min Documented By: MTP Co-signed By: DIDI Metoprolol Succinate (Metoprolol Succ 50mg Ext Rel Tab) 37.5 mg PO NOW STA Stop: 11/23/23 16:24 Last Admin: 11/23/23 17:13 Dose: 37.5 mg Documented By: BRAYDEN Metoprolol Tartrate (Metoprolol Tartrate 1 Mg/Ml Vial) 5 mg IV NOW STA Stop: 11/23/23 12:38 Last Admin: 11/23/23 13:12 Dose: 5 mg Documented By: CARLOS Metoprolol Tartrate (Metoprolol Tartrate 1 Mg/Ml Vial) 5 mg IV NOW STA Stop: 11/23/23 13:19 Last Admin: 11/23/23 14:25 Dose: 5 mg Documented By: CARLOS Metoprolol Tartrate (Metoprolol Tartrate 1 Mg/Ml Vial) 5 mg IV NOW STA Stop: 11/23/23 14:14 Last Admin: 11/23/23 15:42 Dose: 5 mg Documented By: CARLOS Metoprolol Tartrate (Metoprolol Tartrate 1 Mg/Ml Vial) 5 mg IV NOW STA Stop: 11/23/23 19:10 Last Admin: 11/23/23 19:18 Dose: 5 mg Documented By: Miscellaneous (Heparin Stop Order) 1 each N/A DAILY@2100 ONE Stop: 11/26/23 21:01 Last Admin: 11/26/23 21:43 Dose: 1 each Documented By: KIARA Pantoprazole Sodium (Pantoprazole 40 Mg Tab) 40 mg PO ONE ONE Stop: 11/24/23 21:06 Last Admin: 11/24/23 21:14 Dose: 40 mg Documented By: COLTONG Potassium Chloride (Potassium Chloride Crtab 20 Meq Tabcr) 40 meq PO NOW STA Stop: 11/23/23 15:22 Last Admin: 11/23/23 15:39 Dose: 20 meq Documented By: CARLOS PG Care Time/CCT Total # of Minutes Spent Total Time Spent with Patient: Total time spent is greater than 50% in coordination of care (as documented) at patient's floor/unit and/or counseling patient:35 Coding [place] [address] SUB INP/OBS CARE 3/50MIN Patient Type Established History Detailed Exam Detailed Medical Decision Making High Complexity Diagnoses Atrial flutter with rapid ventricular response I48.92 Paroxysmal atrial fibrillation I48.0 Acute diastolic CHF (congestive heart failure) I50.31 Time Spent (min) 54
[2023-11-27] MEDS: DIGOXIN 250 MCG in SYRINGE 9 ML IV STA (09:46)
[2023-11-27] MEDS: FUROSEMIDE 40 MG TAB PO ONE (10:59)
[2023-11-27] MEDS: FUROSEMIDE 40 MG/4 ML VIAL IV ONE (10:59)
--- NOTE | 2023-11-27 15:24 | Hospitalist Progress Note ---
Date of Service November 27, 2023 Assessment & Plan (1) Narrow complex tachycardia: Plan: Present to the ED due to being significantly tachycardic with heart rate in the 140s at her PCP office earlier today ECG on arrival was consistent with SVT and patient was given 3 doses of 5 mg IV Lopressor, 500 mL NSS, 1 g elevated, 40M EQ p.o. KCl, and 10 mEq IV KCl Patient has been started on a Cardizem drip Cardiology on board Echocardiogram reviewed. Off of Cardizem drip Continue metoprolol succinate 50 mg every morning Continue Cardizem 240mg Patient got a dose of IV digoxin today Will start on p.o. digoxin 125 starting tomorrow Patient agreed to Eliquis upon discharge. Currently on Eliquis Patient will follow-up with cardiology outpatient to consider ablation She appears to be slightly volume overloaded today. Ordered a dose of p.o. La six. She may need some as needed Lasix to go home with. Check BMP in a.m. TSH within normal limits Electrolytes unremarkable (2) Supraventricular tachycardia, paroxysmal: Plan: See narrow complex tachycardia (3) Hypokalemia: Plan: Initial potassium level of 3.3 on arrival with mag of 1.9 Likely due to p.o. Lasix use over the past 4 days Improved (4) Polymyalgia rheumatica: Plan: Recently completed a year-long prednisone taper last month Plan Likely discharge tomorrow if heart rate controlled on p.o. regimen Admission and Anticipated Discharge Date Admission Date: November 23, 2023 Subjective Patient states that she was short of breath last night and had to raise the head end of the bed to keep herself comfortable. Review of Systems Review of Systems: All systems reviewed & are unremarkable except as noted in Subjective Physical Exam Physical Exam: General: Awake, conversant Heart: S1, S2/irregularly irregular rhythm fast rate, no murmur rubs or gallops Lungs: Bibasilar crackles. Normal effort Abdomen: Soft/nontender/nondistended. No hepatosplenomegaly Extremities: No clubbing/cyanosis. No edema Behavior: Appropriate, cooperative Results & Data Results & Data Vital Signs (Past 12 Hours) Vital Signs Temp Pulse Pulse Resp BP BP Pulse Ox 11/27/23 11:35 36.5 C 109 H 16 118/78 96 11/27/23 09:46 108 H 11/27/23 07:41 36.5 C 123 H 20 129/85 97 11/27/23 07:12 80 O2 Del Method 11/27/23 11:35 Room Air 11/27/23 09:46 11/27/23 07:41 Room Air 11/27/23 07:12 PG Care Time/CCT Total # of Minutes Spent Total Time Spent with Patient: Total time spent is greater than 50% in coordination of care (as documented) at patient's floor/unit and/or counseling patient: Coding Level of Care Code 74435 SUB INP/OBS CARE 2/35MIN Diagnoses Narrow complex tachycardia I47.19 Supraventricular tachycardia, paroxysmal I47.1 Hypokalemia E87.6 Polymyalgia rheumatica M35.3
[2023-11-28] MEDS ORDERED: MELATONIN 3 MG TAB PO PRN (01:51)
[2023-11-28 06:15] LABS: BUN Creatinine Ratio 40.7 (10-20); Creatinine Clr Calc Pharmacy 64.3 ml/min; Est GFR (African American) 99.6 ml/min; Potassium 3.5 mmol/L (3.5-5.1)
[2023-11-28] MEDS: METOPROLOL SUCC 25MG EXT REL TAB PO ONE (11:25)
[2023-11-28] MEDS: dilTIAZem HCl 60 MG TAB PO ONE (11:29)
--- NOTE | 2023-11-28 15:11 | Hospitalist Progress Note ---
Date of Service November 28, 2023 Assessment & Plan (1) Narrow complex tachycardia: Plan: Present to the ED due to being significantly tachycardic with heart rate in the 140s at her PCP office earlier today ECG on arrival was consistent with SVT and patient was given 3 doses of 5 mg IV Lopressor, 500 mL NSS, 1 g elevated, 40M EQ p.o. KCl, and 10 mEq IV KCl Patient has been started on a Cardizem drip Cardiology on board Echocardiogram reviewed. Off of Cardizem drip Increase metoprolol succinate to 75 mg every morning, also increase Cardizem to 360 mg every day Continue p.o. digoxin 125 microgram Patient agreed to Eliquis upon discharge. Currently on Eliquis Patient will follow-up with cardiology outpatient to consider ablation She appears to be slightly volume overloaded today. Ordered a dose of p.o. Lasix. She may need some as needed Lasix to go home with. Check BMP in a.m. TSH within normal limits Electrolytes unremarkable Plan was to discharge her today however her heart rate was still in the 130s, so I increased her metoprolol to 75 mg and also had diltiazem to 360 mg Will recheck in the morning hopefully discharge tomorrow morning. (2) Supraventricular tachycardia, paroxysmal: Plan: See narrow complex tachycardia (3) Hypokalemia: Plan: Initial potassium level of 3.3 on arrival with mag of 1.9 Likely due to p.o. Lasix use over the past 4 days Improved (4) Polymyalgia rheumatica: Plan: Recently completed a year-long prednisone taper last month Plan Likely discharge tomorrow if heart rate controlled on p.o. regimen Admission and Anticipated Discharge Date Admission Date: November 23, 2023 Subjective Patient seen and examined, sitting quietly in the chair, daughter by the bedside. No new complaints Review of Systems Review of Systems: All systems reviewed are negative, apart from the ones contained in the history. Physical Exam Physical Exam: The patient is awake, alert and oriented 3, well developed and well nourished, normocephalic and atraumatic, lying in bed and in no acute distress. HEENT--PERRL, EOMI, mucous membranes and oropharynx mildly dry Neck--supple. No JVD. No bruits. Thyroid normal, trachea midline, no adenopathy. Heart--normal S1 and S2. No murmurs, rubs or gallops. Lungs--clear bilaterally, no respiratory distress, no accessory muscle use. Abdomen--normal bowel sounds and soft. Extremities--no cyanosis or clubbing. No edema. Dermatologic--normal skin turgor, normal color, no abnormal lymph nodes, no rash. Neurologic--cranial nerves II through XII grossly intact. Rheumatologic--normal range of motion. Psychiatric--normal affect. Results & Data Results & Data Vital Signs (Past 12 Hours) Vital Signs Temp Pulse Pulse Resp BP Pulse Ox O2 Del Method 11/28/23 11:00 98.1 F 77 16 105/69 96 Room Air 11/28/23 07:00 97.3 F L 130 H 18 112/77 94 Room Air 11/28/23 07:00 Room Air 11/28/23 06:00 127 H PG Care Time/CCT Total # of Minutes Spent Total Time Spent with Patient: Total time spent is greater than 50% in coordination of care (as documented) at patient's floor/unit and/or counseling patient: Coding Level of Care Code 68726 SUB INP/OBS CARE 2/35MIN Diagnoses Narrow complex tachycardia I47.19 Supraventricular tachycardia, paroxysmal I47.1 Hypokalemia E87.6 Polymyalgia rheumatica M35.3 Time Spent (min) 35
[2023-11-28] MEDS: DIGOXIN 0.125 MG TAB PO SCH (15:41)
[2023-11-28] MEDS: GLYCERIN ADULT 12 SUPP/BOX SUPP PR ONE (21:14)
[2023-11-28] MEDS: POLYETHYLENE (MIRALAX) 17 GM PACK PO ONE (21:15)
[2023-11-29] MEDS: dilTIAZem HCL 180 MG CAPCR PO SCH (08:08)
[2023-11-29] MEDS: METOPROLOL SUCC 25MG EXT REL TAB PO SCH (08:08)
[2023-11-29 08:11] VITALS: PULSE 92; RESP 18; TEMP 97.7; O2SAT 94
[2023-11-29] MEDS: POLYETHYLENE (MIRALAX) 17 GM PACK PO SCH (08:15)
[2023-11-29 10:46] VITALS: BP 118/78
--- NOTE | 2023-11-29 11:55 | Discharge Summary ---
Date of Service November 29, 2023 Admission HPI Per Admitting Provider Scarlett is an 83-year-old female with a past medical history significant for SVT, MGUS, PMR, and GERD who presented to the [facility] ED on 11/23/2023 at the recommendation of her PCP after she was noted to be tachycardic with heart rate in the 140s during her PCP appointment this morning. On arrival to the ED she was noted be tachycardic with heart rate in the 140s but was otherwise stable. Labs were significant for a potassium of 3.3, mag of 1.9, high-sensitivity troponin within normal limits, BNP of 147, full respiratory BioFire negative, and UA with trace leukocyte esterase. Chest x-ray was read as stable mild cardiomegaly and small bilateral pleural effusions. Initial ECG showed SVT with possible old anterior septal infarct. Patient was initially given 10 mEq IV KCl, 40M EQ p.o. KCl, 1 g IV mag sulfate, 500 mL NSS, and a total of 3 doses 5 mg IV metoprolol tartrate the 110's. However, Repeat ECG after initial resuscitation shows possible atrial flutter versus MAT. Per chart review, the patient was recently seen in the [facility] ED on 11/20/2023 with a chief complaint of shortness of breath. Workup at that time was significant for a BNP of 168, CTA of the chest negative for PE but showing bilateral pleural effusions, and negative bilateral venous Doppler scans. ECG during that visit showed sinus rhythm with first-degree AV block with old septal infarct. The patient was discharged with 40 mg p.o. Lasix daily x 4 days. Patient was sitting in bed in no acute distress at time of the exam with her family bedside which includes her son, [id number], and granddaughter. They confirm history above including ED visit on 11/20/2023 for shortness of breath and bilateral lower extremity swelling. She states that p.o. Lasix has significantly helped with her swelling and weight gain. States that she had been feeling well over the weekend, however, her [id number] states that the patient had significantly less energy than her baseline and definitely had episodes of tachycardia over the weekend. Patient denies recent fever, chills, chest pain, cough, abdominal pain, nausea/vomiting, dysuria, hematuria, melena, bloody bowel movements, recurrent lower extremity swelling, and recent trauma. When asked about previous bleeding they explained that the patient had a previous GI bleed in 2017 which required hospitalization. Denies other episodes of bleeding since 2017. She recently completed a long prednisone taper over the past year for PMR which was completed last month. We discussed CODE STATUS, they confirmed the patient is a full code and would want her son to make medical decisions for her if she cannot make them herself. Patient confirmed that she forgot to take her dose of a.m. metoprolol succinate prior to her PCP appointment. Admission Exam (Per Admitting) Constitutional The patient is awake, alert and oriented 3, well developed and well nourished, normocephalic and atraumatic, lying in bed and in no acute distress. HEENT--PERRL, EOMI, mucous membranes and oropharynx mildly dry Neck--supple. No JVD. No bruits. Thyroid normal, trachea midline, no adenopathy. Heart--normal S1 and S2. No murmurs, rubs or gallops. Lungs--clear bilaterally, no respiratory distress, no accessory muscle use. Abdomen--normal bowel sounds and soft. Extremities--no cyanosis or clubbing. No edema. Dermatologic--normal skin turgor, normal color, no abnormal lymph nodes, no rash. Neurologic--cranial nerves II through XII grossly intact. Rheumatologic--normal range of motion. Psychiatric--normal affect. Discharge Data Consultations 11/23/23 15:53 ED Decision to Admit Stat 11/23/23 16:17 Consult Cardiology Routine Hospital Course (1) Narrow complex tachycardia: Present to the ED due to being significantly tachycardic with heart rate in the 140s at her PCP office earlier today ECG on arrival was consistent with SVT and patient was given 3 doses of 5 mg IV Lopressor, 500 mL NSS, 1 g elevated, 40M EQ p.o. KCl, and 10 mEq IV KCl Patient has been started on a Cardizem drip Cardiology on board Echocardiogram reviewed. Off of Cardizem drip Increase metoprolol succinate to 75 mg every morning, also increase Cardizem to 360 mg every day Continue p.o. digoxin 125 microgram Patient agreed to Eliquis upon discharge. Currently on Eliquis Patient will follow-up with cardiology outpatient to consider ablation She appears to be slightly volume overloaded today. Ordered a dose of p.o. Lasix. She may need some as needed Lasix to go home with. Check BMP in a.m. TSH within normal limits Electrolytes unremarkable Plan was to discharge her today however her heart rate was still in the 130s, so I increased her metoprolol to 75 mg and also had diltiazem to 360 mg Will recheck in the morning hopefully discharge tomorrow morning. (2) Supraventricular tachycardia, paroxysmal: See narrow complex tachycardia (3) Hypokalemia: Initial potassium level of 3.3 on arrival with mag of 1.9 Likely due to p.o. Lasix use over the past 4 days Improved (4) Polymyalgia rheumatica: Recently completed a year-long prednisone taper last month Plan Likely discharge tomorrow if heart rate controlled on p.o. regimen Coding Level of Care Code 86075 INP/OBS DISCH >30 MIN Diagnoses Narrow complex tachycardia I47.19 Supraventricular tachycardia, paroxysmal I47.1 Hypokalemia E87.6 Polymyalgia rheumatica M35.3 Time Spent (min) 35
== END 2023-11-29 13:37 | disposition home or self-care (01) | DRG 308 ==
LOC: ED 11:36 → SUATTDRO 15:59 → EDINP 15:59 → 4W 18:17